=== PATIENT | male | born 1945 | race Caucasian/White ===

== ENCOUNTER → 2019-11-04 09:17 | Outpatient (BNVA) | payer MEDICARE, SELFPAY | PROVIDERS: Family Provider Family Medicine; PCP Family Medicine; Visit Provider Emergency Medicine | DX: R52 Pain, unspecified (principal); R05 Cough; R00.1 Bradycardia, unspecified; N28.9 Disorder of kidney and ureter, unspecified; I50.9 Heart failure, unspecified; J01.00 Acute maxillary sinusitis, unspecified | CPT/HCPCS: 87804 ==

== ENCOUNTER → 2021-01-28 09:21 | Outpatient (BNVA) | payer OTHER, MEDICARE, SELFPAY | PROVIDERS: Family Provider Family Medicine; PCP Family Medicine; Visit Provider Emergency Medicine | DX: J02.9 Acute pharyngitis, unspecified (principal); J06.9 Acute upper respiratory infection, unspecified | CPT/HCPCS: 87071; 87880 ==

== ENCOUNTER 2021-09-26 14:53 | Inpatient (IN) | payer OTHER, MEDICARE, SELFPAY ==
[2021-09-26] VITALS (10 sets, daily range): BP systolic 151–205; BP diastolic 50–84; PULSE 35–50; RESP 15–23; TEMP 36.6; O2SAT 95–99; BMI 34.7
--- NOTE | 2021-09-26 15:02 | ECG_ITS ---
[facility] Test Date: 2021-09-26 Pat Name: Virgilio Means Department: Room: Gender: Male Slimer: : 1945 Requested By: Madi Colón Order Number: [id number] Apryl MD: David Hanna M.D. Measurements Intervals [place] Rate: 54 P: [place]: QRS: 75 QRSD: 169 T: -22 QT: 483 QTc: 459 Interpretive Statements UNCERTAIN IRREGULAR RHYTHM LEFT BUNDLE BRANCH BLOCK [120+ ms QRS DURATION, 80+ ms Q/S IN V1/V2, 85+ ms R IN I/aVL/V5/V6] Compared to ECG 07/05/2019 11:59:54 Left bundle-branch block now present Sinus bradycardia no longer present T-wave abnormality no longer present Electronically Signed On 09-27-2021 17:42:32 REVERSER by David Hanna M.D. [id number]
--- NOTE | 2021-09-26 16:59 | ED_ITS ---
Documented by User: Madi Islas DO 10/04/21 11:14 HPI - Chest Pain General: Chief Complaint: ER Hold Stated Complaint: CP Time Seen by Provider: 09/26/21 16:33 History of Present Illness: HPI narrative: 76-year-old male presents emergency room with complaint of chest discomfort and tightness. Patient has a history of coronary artery disease. He does take metoprolol is not had any recent changes in medication. The nurse wrote he was reporting pain 10 out of 10 however when I came to see the patient he was denying any chest pain. MD complaint: chest pain and chest discomfort Pertinent past history: coronary artery disease Onset (ago): hour(s) Timing of current episode: episodic Prior episodes: Yes Onset: during rest Pain location: left chest Pain radiation: none Severity: moderate Quality: aching and heaviness Relieving factors: nothing Exacerbating factors: nothing Associated symptoms: Deny abdominal pain, diaphoresis, dyspnea, fever(s), leg edema, nausea, palpitations, sense of impending doom, syncope or vomiting Treatment prior to arrival: none Review of Systems Const: Denies: fever(s) or diaphoresis ENMT: Denies: throat pain, ear or mastoid pain, nasal discharge or nasal congestion Card: Denies: palpitations or syncope Resp: Denies: dyspnea GI: Denies: abdominal pain, nausea or vomiting : Denies: flank pain, dysuria, urinary frequency or urinary urgency Skin/Breast: Denies: rash or pruritus [facility] ED PFSH: Medical History Acute myocardial infarction, unspecified Bradycardia Bradycardia CAD (coronary artery disease) Cardiomegaly Chest pain CHF (congestive heart failure) Chronic sinus bradycardia CKD (chronic kidney disease) stage 3, GFR 30-59 ml/min COPD (chronic obstructive pulmonary disease) Gout, chronic Hypertension Impaired renal function PTSD (post-traumatic stress disorder) Thrombocytopenia Social History Smoking and tobacco status: never smoked Alcohol intake: never History of recent travel: Yes Details: Traveled to [place] for Dr andrews. Returned 01/26/21 Out of state: Yes Out of country: No Physical Exam Const: COMMON NORMALS: no acute distress and alert GENERAL APPEARANCE: cooperative and comfortable ORIENTATION/CONSCIOUSNESS: Yes awake, Yes oriented to person, Yes oriented to place and Yes oriented to time HENMT: COMMON NORMALS: normocephalic, atraumatic, external ears normal, EAC's normal, TM's normal bilaterally and Normal nasal mucous membranes and turbinates present HEAD & SCALP: normocephalic and atraumatic NOSE: Normal nasal mucous membranes and turbinates present EXTERNAL EAR: Yes external ears normal EXTERNAL AUDITORY CANAL: EAC's normal TYMPANIC MEMBRANE: TM's normal bilaterally Neck/C-Spine: COMMON NORMALS: no JVD Resp: COMMON NORMALS: normal respiratory effort, No retractions, No use of accessory muscles and clear to auscultation bilaterally AUSCULTATION: clear to auscultation bilaterally Cardio: COMMON NORMALS: no JVD, regular rhythm and No murmurs present (Cardio) RATE: bradycardic RHYTHM: regular rhythm GI: COMMON NORMALS: Soft to palpation and No hepatosplenomegaly present AUSCULTATION: Yes normoactive bowel sounds PALPATION: Yes Soft to palpation, No Tenderness to palpation present (GI), No Guarding due to palpation present (GI) and Yes No hepatosplenomegaly present Extremity: COMMON NORMALS: normal to inspection, capillary refill normal, no clubbing, cyanosis or edema, no calf tenderness and no pedal edema Neuro: SENSORIUM/ORIENTATION: Yes alert, Yes oriented to person, Yes oriented to place and Yes oriented to time Skin: COMMON NORMALS: no rashes or lesions noted GENERAL SKIN EXAM: no rashes or lesions noted Course Vital Signs: Vital signs: Vital Signs Temperature 97.8 F 09/30/21 21:54 Pulse Rate 90 09/30/21 21:54 Respiratory Rate 25 H 09/30/21 21:54 Blood Pressure 165/89 09/30/21 21:54 Pulse Oximetry 99 09/30/21 15:41 MDM - Chest Pain MDM Narrative Medical decision making narrative: Labs imaging and EKG reviewed nothing acute he does have some mildCongestive heart failure. There are some labs pending he is having a chronic sinus bradycardia which is quite significant. Care turned over to Dr. Cespedes at change shift see his note final diagnosis and disposition. Medical Records Attestation: I reviewed the patient's medical records. Lab Data Attestation: I reviewed the patient's lab results. Result diagrams: 09/30/21 04:50 09/30/21 04:50 Labs: Lab Results 09/26/21 09/26/21 09/26/21 16:39 16:39 16:39 WBC 4.2 10^3/uL 10^3/uL (4.0-10.0) RBC 3.39 10^6/uL L 10^6/uL (4.1-5.3) Hgb 10.2 g/dL L g/dL (11.7-16.6) Hct 29.1 % L % (42.0-52.0) MCV 85.8 fl fl (80-94) MCH 30.1 pg pg (28.0-34.0) MCHC 35.1 g/dL g/dL (30.0-36.0) RDW 12.5 % % (12.1-15.1) Plt Count 159 10^3/cmm 10^3/cmm (130-400) MPV 9.7 fL fL (7.4-10.4) Neut % (Auto) 65.9 % % Lymph % (Auto) 20.3 % % [place] % (Auto) 9.3 % % Eos % (Auto) 4.1 % % Baso % (Auto) 0.2 % % Neut # (Auto) 2.75 10^3/uL 10^3/uL (1.8-7.7) Lymph # (Auto) 0.9 10^3/uL 10^3/uL (0.8-4.8) [place] # (Auto) 0.4 10^3/uL 10^3/uL (0.2-0.9) Eos # (Auto) 0.2 10^3/uL 10^3/uL (0.0-0.8) Baso # (Auto) 0.0 10^3/uL 10^3/uL (0.0-0.1) Nucleated RBC % (auto) 0 % % Nucleated RBCs # 0.0 /100WBC /100WBC Sodium 134 mmol/L L mmol/L (136-145) Potassium 4.8 mmol/L mmol/L (3.5-5.1) Chloride 102 mmol/L mmol/L (98-107) Carbon Dioxide 20 mmol/L L mmol/L (22-29) Anion Gap 16.8 (5-19) BUN 14 mg/dL mg/dL (8-23) Creatinine 1.5 mg/dL H mg/dL (0.7-1.2) GFR Calculation Not Reportable Glucose 102 mg/dL mg/dL (65-115) Calculated Osmolality 279 mOsm/kg L mOsm/kg (285-295) Calcium 8.2 mg/dL L mg/dL (8.5-10.5) Total Bilirubin 0.3 mg/dL mg/dL (0.15-1.2) AST 59 U/L H U/L (0-40) ALT 40 U/L U/L (0-41) Alkaline Phosphatase 63 IU/L IU/L (40-130) Creatine Kinase 74 U/L U/L (39-308) Troponin T Baseline 33 ng/L H ng/L (0-15) Troponin T 120 Minute Delta Troponin T NT-Pro-B Natriuret Pep 9279 pg/mL H pg/mL (0-125) Total Protein 6.3 g/dL L g/dL (6.6-8.7) Albumin 3.9 g/dL g/dL (3.5-5.2) Globulin 2.4 g/dL g/dL (1.3-4.6) 09/26/21 19:05 WBC RBC Hgb Hct MCV MCH MCHC RDW Plt Count MPV Neut % (Auto) Lymph % (Auto) [place] % (Auto) Eos % (Auto) Baso % (Auto) Neut # (Auto) Lymph # (Auto) [place] # (Auto) Eos # (Auto) Baso # (Auto) Nucleated RBC % (auto) Nucleated RBCs # Sodium Potassium Chloride Carbon Dioxide Anion Gap BUN Creatinine GFR Calculation Glucose Calculated Osmolality Calcium Total Bilirubin AST ALT Alkaline Phosphatase Creatine Kinase Troponin T Baseline Troponin T 120 Minute 34.03 ng/L H ng/L (0-15) Delta Troponin T 1.03 ABS# ABS# (0-10) NT-Pro-B Natriuret Pep Total Protein Albumin Globulin Discharge Plan Discharge Patient Disposition: Admitted As Inpatient Admit Provider: Evan Pena Clinical Impression: Chest pain, Bradycardia Condition: Stable Discharge Diet: Cardiac Discharge Activity: Increase activity as tolerated Coding Level of Care Code ED Junior Programmer Analyst for g Fwd Exam Detailed Documented by User: Whit Cespedes MD 09/26/21 19:57 HPI - Chest Pain General: Chief Complaint: ER Hold Stated Complaint: CP Time Seen by Provider: 09/26/21 16:33 PFSH ED PFSH: Medical History Acute myocardial infarction, unspecified Bradycardia Bradycardia CAD (coronary artery disease) Cardiomegaly Chest pain CHF (congestive heart failure) Chronic sinus bradycardia CKD (chronic kidney disease) stage 3, GFR 30-59 ml/min COPD (chronic obstructive pulmonary disease) Gout, chronic Hypertension Impaired renal function PTSD (post-traumatic stress disorder) Thrombocytopenia Social History Smoking and tobacco status: never smoked Alcohol intake: never History of recent travel: Yes Details: Traveled to [place] for Dr andrews. Returned 01/26/21 Out of state: Yes Out of country: No Course Vital Signs: Vital signs: Vital Signs Temperature 97.8 F 09/30/21 21:54 Pulse Rate 90 09/30/21 21:54 Respiratory Rate 25 H 09/30/21 21:54 Blood Pressure 165/89 09/30/21 21:54 Pulse Oximetry 99 09/30/21 15:41 MDM - Chest Pain MDM Narrative Medical decision making narrative: Patient presents here with chest pain along with bradycardia bradycardia been asymptomatic he has not been hypotensive heart rate does dip into the 30s this could be due to his medication of metoprolol he has not followed up with cardiology in months spoke to hospitalist will admit for observation for his pain along with his bradycardia. Lab Data Result diagrams: 09/30/21 04:50 09/30/21 04:50 Labs: Lab Results 09/26/21 09/26/21 09/26/21 16:39 16:39 16:39 WBC 4.2 10^3/uL 10^3/uL (4.0-10.0) RBC 3.39 10^6/uL L 10^6/uL (4.1-5.3) Hgb 10.2 g/dL L g/dL (11.7-16.6) Hct 29.1 % L % (42.0-52.0) MCV 85.8 fl fl (80-94) MCH 30.1 pg pg (28.0-34.0) MCHC 35.1 g/dL g/dL (30.0-36.0) RDW 12.5 % % (12.1-15.1) Plt Count 159 10^3/cmm 10^3/cmm (130-400) MPV 9.7 fL fL (7.4-10.4) Neut % (Auto) 65.9 % % Lymph % (Auto) 20.3 % % [place] % (Auto) 9.3 % % Eos % (Auto) 4.1 % % Baso % (Auto) 0.2 % % Neut # (Auto) 2.75 10^3/uL 10^3/uL (1.8-7.7) Lymph # (Auto) 0.9 10^3/uL 10^3/uL (0.8-4.8) [place] # (Auto) 0.4 10^3/uL 10^3/uL (0.2-0.9) Eos # (Auto) 0.2 10^3/uL 10^3/uL (0.0-0.8) Baso # (Auto) 0.0 10^3/uL 10^3/uL (0.0-0.1) Nucleated RBC % (auto) 0 % % Nucleated RBCs # 0.0 /100WBC /100WBC Sodium 134 mmol/L L mmol/L (136-145) Potassium 4.8 mmol/L mmol/L (3.5-5.1) Chloride 102 mmol/L mmol/L (98-107) Carbon Dioxide 20 mmol/L L mmol/L (22-29) Anion Gap 16.8 (5-19) BUN 14 mg/dL mg/dL (8-23) Creatinine 1.5 mg/dL H mg/dL (0.7-1.2) GFR Calculation Not Reportable Glucose 102 mg/dL mg/dL (65-115) Calculated Osmolality 279 mOsm/kg L mOsm/kg (285-295) Calcium 8.2 mg/dL L mg/dL (8.5-10.5) Total Bilirubin 0.3 mg/dL mg/dL (0.15-1.2) AST 59 U/L H U/L (0-40) ALT 40 U/L U/L (0-41) Alkaline Phosphatase 63 IU/L IU/L (40-130) Creatine Kinase 74 U/L U/L (39-308) Troponin T Baseline 33 ng/L H ng/L (0-15) Troponin T 120 Minute Delta Troponin T NT-Pro-B Natriuret Pep 9279 pg/mL H pg/mL (0-125) Total Protein 6.3 g/dL L g/dL (6.6-8.7) Albumin 3.9 g/dL g/dL (3.5-5.2) Globulin 2.4 g/dL g/dL (1.3-4.6) 09/26/21 19:05 WBC RBC Hgb Hct MCV MCH MCHC RDW Plt Count MPV Neut % (Auto) Lymph % (Auto) [place] % (Auto) Eos % (Auto) Baso % (Auto) Neut # (Auto) Lymph # (Auto) [place] # (Auto) Eos # (Auto) Baso # (Auto) Nucleated RBC % (auto) Nucleated RBCs # Sodium Potassium Chloride Carbon Dioxide Anion Gap BUN Creatinine GFR Calculation Glucose Calculated Osmolality Calcium Total Bilirubin AST ALT Alkaline Phosphatase Creatine Kinase Troponin T Baseline Troponin T 120 Minute 34.03 ng/L H ng/L (0-15) Delta Troponin T 1.03 ABS# ABS# (0-10) NT-Pro-B Natriuret Pep Total Protein Albumin Globulin EKG Data^ EKG 1: Attestation: I personally reviewed and interpreted this EKG as follows: EKG interpretation date: 09/26/21 EKG interpretation time: 18:13 Interpretation: ash hr [address] or t wave abnormalities qrs 172 qtc 471 Discharge Plan Discharge Patient Disposition: Admitted As Inpatient Admit Provider: Evan Pena Clinical Impression: Chest pain, Bradycardia Condition: Stable Discharge Diet: Cardiac Discharge Activity: Increase activity as tolerated Coding Level of Care Code ED Junior Programmer Analyst for g Fwd Exam Detailed
--- NOTE | 2021-09-26 17:10 | XRR_ITS ---
PROCEDURE INFORMATION: Exam: XR Chest Exam date and time: 09/26/2021 5:10 PM Age: 76 years old Clinical indication: Chest wall pain; Prior surgery; Surgery date: 6+ months; Surgery type: Stints; Additional info: Chest pain TECHNIQUE: Imaging protocol: XR of the chest. Views: 1 view. COMPARISON: CR Chest 1 [place] [id number] 07/05/2019 12:46 PM FINDINGS: Lungs: Unremarkable. No consolidation. Pleural spaces: Unremarkable. No pleural effusion. No pneumothorax. Heart/Mediastinum: Stable mild cardiomegaly. Bones/joints: Sternotomy wires noted. The superior most sternotomy wires are fractured, unchanged. Visualized osseous structures are intact. XR/XR chest 1V portable [id number] IMPRESSION: Stable exam, no acute findings.
[2021-09-26 17:27] LABS: Basophils % 0.2 %; Eosinophils # 0.2 10^3/uL (0.0-0.8); Eosinophils % 4.1 %; Hematocrit 29.1 % (42.0-52.0); Hemoglobin 10.2 g/dL (11.7-16.6); Lymphocytes # 0.9 10^3/uL (0.8-4.8); Lymphocytes % 20.3 %; Mean Corpuscular HGB Conc 35.1 g/dL (30.0-36.0); Mean Corpuscular Hemoglobin 30.1 pg (28.0-34.0); Mean Corpuscular Volume 85.8 fl (80-94); Mean Platelet Volume 9.7 fL (7.4-10.4); Monocytes # 0.4 10^3/uL (0.2-0.9); Monocytes % 9.3 %; Neutrophils # 2.75 10^3/uL (1.8-7.7); Neutrophils % 65.9 %; Nucleated Red Blood Cells % 0 %; Platelet Count 159 10^3/cmm (130-400); Red Blood Count 3.39 10^6/uL (4.1-5.3); Red Cell Distribution Width 12.5 % (12.1-15.1); White Blood Count 4.2 10^3/uL (4.0-10.0)
[2021-09-26] MEDS: aspirin 81 mg Chew Tablet 324 MG PO (17:29)
--- NOTE | 2021-09-26 17:51 | PC.PHAR ---
pts verified the pts medications-pts states the pt was taking metformin but states he hasnt taken for a year or so-waiting for [facility] to [facility] list
[2021-09-26 18:14] LABS: Troponin(5th) Baseline 33 ng/L (0-15)
[2021-09-26 18:18] LABS: Alanine Aminotransferase 40 U/L (0-41); Albumin Level 3.9 g/dL (3.5-5.2); Alkaline Phosphatase 63 IU/L (40-130); Aspartate Amino Transferase 59 U/L (0-40); Blood Urea Nitrogen 14 mg/dL (8-23); Calcium 8.2 mg/dL (8.5-10.5); Carbon Dioxide 20 mmol/L (22-29); Chloride 102 mmol/L (98-107); Creatine Phosphokinase 74 U/L (39-308); Globulin 2.4 g/dL (1.3-4.6); Glucose 102 mg/dL (65-115); NT Pro B Type Natriuretic Pept 9279 pg/mL (0-125); Osmolality Calculated 279 mOsm/kg (285-295); Sodium 134 mmol/L (136-145); Total Bilirubin 0.3 mg/dL (0.15-1.2); Total Protein 6.3 g/dL (6.6-8.7)
[2021-09-26 18:21] LABS: Anion Gap 16.8 (5-19); Potassium 4.8 mmol/L (3.5-5.1)
--- NOTE | 2021-09-26 19:10 | ECG_ITS ---
[facility] Test Date: 2021-09-26 Pat Name: Virgilio Means Department: Room: Gender: Male Nut Threader: : 1945 Requested By: Madi Colón Order Number: [id number] Apryl MD: Krista Walker M.D. Measurements Intervals [place] Rate: 49 P: [place]: QRS: 5 QRSD: 172 T: 146 QT: 500 QTc: 454 Interpretive Statements Sinus rhythm with long first-degree AV block LEFT BUNDLE BRANCH BLOCK [120+ ms QRS DURATION, 80+ ms Q/S IN V1/V2, 85+ ms R IN I/aVL/V5/V6] Compared to ECG 09/26/2021 15:14:25 No significant changes Electronically Signed On 09-29-2021 9:36:33 WATER MAINTENANCE SUPERVISOR by Krista Walker M.D. [id number]
[2021-09-26 19:33] LABS: Troponin 5 2HR 34.03 ng/L (0-15); Troponin 5 2HR Delta 1.03 ABS# (0-10)
--- NOTE | 2021-09-26 20:47 | PM.HP ---
Providers/Chief Complaint Primary Care Provider: Lara Jenkins MD Chief Complaint: CP History of Present Illness Virgilio Means is a 76 year old male with past medical history hypertension diabetes, CAD S/P PCI , HFrEF with EF of 45%, gout, chronic sinus bradycardia, came in with chief complaint of acute onset of dizziness, as well as substernal chest pain while he was walking this morning to collect his mail. chest pain was moderate in intensity, nonradiating, transient, it resolved with rest.Patient has known history of chronic sinus bradycardia, according to him he usually stays in upper 40s. When I examined the patient he denied any chest pain shortness of breath dizziness, fever cough headache, nausea vomiting. His heart rate in the ER had dropped lowest to 35 Upon arrival in the ER worked up for above-mentioned complaint. Pertinent imaging studies: X-ray chest: No acute findings EKG: Junctional bradycardia Pertinent labs: WBC 4.2 H&H:10.2/29, PLT : 159 , serum sodium 134 serum potassium 4.8, BUN / serum creatinine 14/ 1.5 , Troponin trend without significant delta, proBNP 9279 Review of Systems Const: Denies: fever(s), chills, body aches, change in appetite or diaphoresis Card: Denies: palpitations, edema, swelling of feet/ankles, dyspnea on exertion, orthopnea or leg pain with exertion Resp: Denies: dyspnea, productive cough, wheezing or pain on inspiration GI: Denies: abdominal pain, nausea, vomiting, diarrhea or constipation : Denies: flank pain or difficulty urinating Musc: Denies: back pain, extremity pain or extremity swelling Neuro: Denies: headache(s), difficulty walking or confusion Medications/Allergies Home Medications Medication Instructions Recorded Confirmed Last Taken Type cetirizine 10 mg capsule 10 mg PO QAM 11/01/19 09/26/21 09/26/21 History clopidogrel 75 mg tablet 75 mg PO QAM 11/01/19 09/26/21 09/26/21 History furosemide 20 mg tablet 20 mg PO DAILY PRN 11/01/19 09/26/21 Unknown History metoprolol tartrate 100 mg tablet 100 mg PO BID 11/01/19 09/26/21 09/26/21 History prazosin 1 mg capsule 1 mg PO BID 11/01/19 09/26/21 09/26/21 History rosuvastatin 20 mg tablet 10 mg PO BEDTIME 11/01/19 09/26/21 09/25/21 History valsartan 80 mg tablet 80 mg PO QAM 11/01/19 09/26/21 09/26/21 History albuterol sulfate [ProAir HFA] 2 puff INHALATION QID PRN 09/26/21 09/26/21 Unknown History aspirin [Aspir-81] 81 mg PO BEDTIME 09/26/21 09/26/21 09/25/21 History diphenhydramine HCl [Benadryl] 50 mg PO BEDTIME 09/26/21 09/26/21 09/25/21 History febuxostat [Uloric] 80 mg PO QAM 09/26/21 09/26/21 09/26/21 History morphine 15 mg PO Q12H PRN 09/26/21 09/26/21 Unknown History omega-3 fatty acids [Fish Oil] 1,000 mg PO BID 09/26/21 09/26/21 09/26/21 History trazodone 50 mg PO BEDTIME 09/26/21 09/26/21 09/25/21 History Allergies Allergy/AdvReac Type Severity Reaction Status Date / Time SHIREEN Inhibitors Allergy unknown Verified 02/01/21 09:03 azithromycin Allergy unknown Verified 02/01/21 09:03 daptomycin Allergy unknown Verified 02/01/21 09:03 enalapril Allergy unknown Verified 02/01/21 09:03 vancomycin Allergy unknown Verified 02/01/21 09:03 PFSH Acute PFSH: Medical History (Updated 09/26/21 @ 20:52 by Evan Pena MD) CHF (congestive heart failure) Chronic sinus bradycardia Impaired renal function Social History Smoking and tobacco status: never smoked Alcohol intake: never History of recent travel: Yes Details: Traveled to [place] for Dr andrews. Returned 01/26/21 Out of state: Yes Out of country: No Vitals/I&O/Wt Last Vital Signs Temp 97.9 F 09/26/21 15:06 Pulse 35 L 09/26/21 19:15 Resp 18 09/26/21 19:15 BP 205/83 09/26/21 19:15 Pulse Ox 99 09/26/21 19:15 Weight last 48 hrs Weight 106.594 kg Physical Exam Const: COMMON NORMALS: patient oriented x3 HENMT: COMMON NORMALS: normocephalic and atraumatic HEAD & SCALP: normocephalic and atraumatic Resp: COMMON NORMALS: clear to auscultation bilaterally EFFORT & INSPECTION: Yes symmetric chest movement AUSCULTATION: clear to auscultation bilaterally Cardio: COMMON NORMALS: regular rate, regular rhythm, S1 normal heart sound present, S2 normal heart sound present, No gallops present (Cardio), No murmurs present (Cardio), No rub (Cardio) and Peripheral pulses 2+ throughout RATE: regular rate RHYTHM: regular rhythm HEART SOUNDS: S1 normal heart sound present and S2 normal heart sound present PERIPHERAL PULSES: Peripheral pulses 2+ throughout GI: COMMON NORMALS: Normal to inspection, nondistended, normoactive bowel sounds present, Soft to palpation, non-tender, No hepatosplenomegaly present and no masses AUSCULTATION: Yes normoactive bowel sounds PALPATION: Yes Soft to palpation and Yes No hepatosplenomegaly present RECTAL EXAM: Yes deferred Extremity: COMMON NORMALS: no clubbing, cyanosis or edema and no pedal edema Neuro: COMMON NORMALS: patient oriented x3 Data : 09/26/21 16:39 09/26/21 16:39 A&P Assessment and plan (1) Bradycardia: Status: Acute (2) Chest pain: Status: Acute (3) CHF (congestive heart failure): Status: Acute Qualifiers: Heart failure chronicity: chronic Heart failure type: unspecified Qualified Code(s): I50.9 - Heart failure, unspecified (4) Hypertension: Status: Acute (5) CKD (chronic kidney disease) stage 3, GFR 30-59 ml/min: Status: Acute Additional A&P Information 76 year old male with past medical history hypertension diabetes, CAD S/P PCI {LCx} , CABG , HFrEF with EF of 45%, gout, chronic sinus bradycardia, came in with chief complaint of acute onset of dizziness, as well as substernal chest pain while he was walking this morning to collect his mail. chest pain was moderate in intensity, nonradiating, transient, it resolved with rest.Patient has known history of chronic sinus bradycardia, according to him he usually stays in upper 40s. #Symptomatic junctional bradycardia : Likely secondary to medication side effect, patient is on metoprolol 100 mg p.o. twice daily at home.Currently patient denies any symptoms. 2D echo Continue telemetry monitoring We will give 500 cc normal saline one-time. Dopamine drip if needed Continue to hold metoprolol Serial professor of biostatistics electrolytes Telemetry monitoring Cardiology consult in a.m. #Chest pain: Likely secondary to symptomatic bradycardia, patient may need ischemia work-up in future. Plan as above #Hypertension: Continue valsartan added hydralazine 50 mg p.o. 3 times daily. As the blood pressure is currently uncontrolled. #HFrEF : Currently compensated. Intake output charting Daily weight K>4, Mg>2 #Diabetes: Continue sliding scale insulin Currently n.p.o. Monitor fingerstick glucose Will start on carbohydrate consistent diet #Gout: Continue Febuxostat #History of coronary artery disease.2019 Angiography reveals no bypass grafts located. Mild left anterior descending disease without lesions. Discrete 99% stenosis of the mid circumflex which underwent angioplasty and stenting.Chronic occlusion of the right coronary artery with collateral flow from the LAD and circumflex mild left ventricular dysfunction, ejection fraction 45%. #CKD stage III: Currently serum creatinine at baseline Monitor BMP Avoid nephrotoxic Intake output charting #DVT prophylaxis: On Lovenox #CODE STATUS: Full code Attestations Medical Necessity Statement*: Patient is to be in hospital for management of symptomatic bradycardia. Anticipated length of stay greater than 2 midnights. Time Spent in Patient Care: Greater than 35 minutes (>than 50% of time spent in counselling and/or direct pt care on unit). Coding Level of Care Code Acute Motor Vehicle Parts Interpreter for [facility] Fwd Exam Detailed Diagnoses Bradycardia R00.1 Chest pain R07.9 CHF (congestive heart failure) I50.9 Heart failure chronicity: chronic Heart failure type: unspecified Hypertension I10 CKD (chronic kidney disease) stage 3, GFR 30-59 ml/min N18.30
[2021-09-26] MEDS: enoxaparin 30 mg/0.3 mL Syringe SUBCUT (21:19)
[2021-09-26] MEDS: sodium chloride 0.9% 1,000 ML 75 ML IV (21:19)
[2021-09-26 22:43] LABS: Troponin 5 6HR 34.74 ng/L (0-15); Troponin 5 6HR Delta 1.74 ng/L (0-12)
--- NOTE | 2021-09-26 23:10 | ECG_ITS ---
[facility] Test Date: 2021-09-27 Pat Name: Virgilio Means Department: Room: EDIP Gender: Male Group Reservations Coordinator: : 1945 Requested By: Madi Colón Order Number: [id number] Apryl MD: Krista Walker M.D. Measurements Intervals [place] Rate: 41 P: [place]: QRS: -23 QRSD: 121 T: 125 QT: 465 QTc: 387 Interpretive Statements Sinus rhythm with long first-degree AV block LEFT BUNDLE BRANCH BLOCK Compared to ECG 09/26/2021 18:13:53 No significant change Electronically Signed On 09-29-2021 9:34:16 MANAGER TRADE by Krista Walker M.D. [email or web address], [email or web address] [email or web address]/[id number]
[2021-09-26] MEDS: hyDRALAzine 25 mg Tablet 50 MG PO (23:37)
[2021-09-26] MEDS: aspirin 81 mg EC Tablet PO (23:37)
[2021-09-26] MEDS: atorvastatin 40 mg Tablet PO (23:38)
--- NOTE | 2021-09-26 23:43 | PC.NURSE ---
patient sleeping comfortably in bed upon entry. patient easily aroused via verbal stimuli. patient given night miedications. patient denies problems/concerns . patinet on youth nutritional monitor. side rails raised x 2 and bed in low, locked position. call light within rech.
[2021-09-27] VITALS (23 sets, daily range): BP systolic 133–198; BP diastolic 56–94; PULSE 40–61; RESP 13–24; TEMP 36.6–36.7; O2SAT 94–99
--- NOTE | 2021-09-27 03:44 | PC.NURSE ---
patient helped to bedside commode for bowel movement. patient with no difficulties noted. patient placed back in bed and on desk monitor. Patient in no obvious distress. Side rails raised x2 and bed in low, locked position. call light within reach. patient denies further needs/complaints at this time.
--- NOTE | 2021-09-27 05:25 | PC.NURSE ---
patient helped to bedside commode with no difficulty. patients EKG performed and shown to DR. capps. patients morning labs drawn with new IV stick and sent to lab. patients bilateral AC iv's removed as leaking from cathlon noted. IV's removed intact with no complications. Patient on security monitor at this time.
[2021-09-27 05:27] LABS: Basophils % 0.4 %; Eosinophils # 0.2 10^3/uL (0.0-0.8); Hematocrit 30.8 % (42.0-52.0); Hemoglobin 10.2 g/dL (11.7-16.6); Lymphocytes # 1.1 10^3/uL (0.8-4.8); Lymphocytes % 22.2 %; Mean Corpuscular HGB Conc 33.1 g/dL (30.0-36.0); Mean Corpuscular Volume 87.5 fl (80-94); Mean Platelet Volume 8.9 fL (7.4-10.4); Monocytes # 0.4 10^3/uL (0.2-0.9); Monocytes % 7.9 %; Neutrophils % 65.3 %; Nucleated Red Blood Cells % 0 %; Platelet Count 155 10^3/cmm (130-400); Red Blood Count 3.52 10^6/uL (4.1-5.3); Red Cell Distribution Width 12.6 % (12.1-15.1); White Blood Count 5.1 10^3/uL (4.0-10.0)
[2021-09-27] MEDS: losartan 50 mg Tablet 25 MG PO (05:47)
[2021-09-27 05:54] LABS: Anion Gap 16.5 (5-19); Blood Urea Nitrogen 13 mg/dL (8-23); Calcium 8.5 mg/dL (8.5-10.5); Carbon Dioxide 21 mmol/L (22-29); Chloride 99 mmol/L (98-107); Glucose 99 mg/dL (65-115); Magnesium 1.6 mg/dL (1.7-2.3); Osmolality Calculated 274 mOsm/kg (285-295); Potassium 4.5 mmol/L (3.5-5.1); Sodium 132 mmol/L (136-145); Thyroid Stimulating Hormone 1.69 uIU/mL (0.27-4.20)
--- NOTE | 2021-09-27 06:52 | PC.NURSE ---
patient noted to have sustained bradycaria @ 24-31 bpm. Upon assessment patient AOx4 and on cafeteria monitor. patient states i just dont feel right and my rectum has starting hurting relaly bad. Dr. Pena notified and will come see patinet.
[2021-09-27] MEDS: hyDRALAzine 20 mg/mL INJ 1 mL 5 MG IVP (07:27)
[2021-09-27] MEDS: magnesium sulfate premix 2 GM/50 ML PIGGYBACK IV (07:28)
--- NOTE | 2021-09-27 07:31 | PM.CONSULT ---
Providers/Reason For Consult Consulting Physician/Specialty*: Dr. Walker, cardiology Reason for Consult*: Chest pain, dizziness and bradycardia Attending Physician: Bobbi Wilkinson MD Primary Care Provider: Lara Jenkins MD History of Present Illness History of Present Illness Virgilio Means is a 76 year old male with past medical history hypertension, diabetes, CAD with h/o remote CABG, status post PCI to mid circumflex in April 2019 (no bypass grafts or stump located on coronary angiogram, ostial LAD with 50% lesion occluded RCA at the origin with collaterals from left side). He also has history of congestive heart, gout, chronic sinus bradycardia. He came in with chief complaint of dizziness when he went to check his mail especially on bending over. He went back home and his drove him to the ER for further evaluation. He is a poor historian but after repeated questioning was able to tell me that he had some retrosternal chest pain on and off. Patient states that he does have it for some time and then it goes away. He does not check his blood pressure at home. He has not seen his primary care physician or Dr. Paris since 2019. On arrival to the ER he was found to have sinus rhythm with long first-degree AV block. Left bundle branch block. Intermittent high-grade AV block and 2: 1 AV block and junctional beats noted on telemetry. Patient states he was taking metoprolol tartrate 100 mg twice a day at home. His heart rate overnight intermittently dropped down to 30s. At the time of examination. Patient's heart rate is in 50s. He denies having any recurrent dizzy spells or chest discomfort since arrival to the ER. Blood pressure running high. I have been asked to assist in evaluating further management. Review of Systems Const: Denies: fever(s), chills, body aches, change in appetite or diaphoresis ENMT: Denies: epistaxis Card: Denies: palpitations, edema, swelling of feet/ankles, dyspnea on exertion, orthopnea or leg pain with exertion Resp: Denies: dyspnea, productive cough, wheezing or pain on inspiration GI: Denies: abdominal pain, nausea, vomiting, diarrhea, constipation or hematochezia : Denies: flank pain, difficulty urinating or hematuria Musc: Denies: back pain, extremity pain or extremity swelling Neuro: Denies: headache(s), difficulty walking or confusion Medications/Allergies Home Medications Medication Instructions Recorded Confirmed Last Taken Type cetirizine 10 mg capsule 10 mg PO QAM 11/01/19 09/26/21 09/26/21 History clopidogrel 75 mg tablet 75 mg PO QAM 11/01/19 09/26/21 09/26/21 History furosemide 20 mg tablet 20 mg PO DAILY PRN 11/01/19 09/26/21 Unknown History metoprolol tartrate 100 mg tablet 100 mg PO BID 11/01/19 09/26/21 09/26/21 History prazosin 1 mg capsule 1 mg PO BID 11/01/19 09/26/21 09/26/21 History rosuvastatin 20 mg tablet 10 mg PO BEDTIME 11/01/19 09/26/21 09/25/21 History valsartan 80 mg tablet 80 mg PO QAM 11/01/19 09/26/21 09/26/21 History albuterol sulfate [ProAir HFA] 2 puff INHALATION QID PRN 09/26/21 09/26/21 Unknown History aspirin [Aspir-81] 81 mg PO BEDTIME 09/26/21 09/26/21 09/25/21 History diphenhydramine HCl [Benadryl] 50 mg PO BEDTIME 09/26/21 09/26/21 09/25/21 History febuxostat [Uloric] 80 mg PO QAM 09/26/21 09/26/21 09/26/21 History morphine 15 mg PO Q12H PRN 09/26/21 09/26/21 Unknown History omega-3 fatty acids [Fish Oil] 1,000 mg PO BID 09/26/21 09/26/21 09/26/21 History trazodone 50 mg PO BEDTIME 09/26/21 09/26/21 09/25/21 History Allergies Allergy/AdvReac Type Severity Reaction Status Date / Time SHIREEN Inhibitors Allergy unknown Verified 02/01/21 09:03 azithromycin Allergy unknown Verified 02/01/21 09:03 daptomycin Allergy unknown Verified 02/01/21 09:03 enalapril Allergy unknown Verified 02/01/21 09:03 vancomycin Allergy unknown Verified 02/01/21 09:03 Current Medications Generic Name Dose Route Start Last Admin Trade Name Freq PRN Reason Stop Dose Admin Aspirin 81 mg 09/26/21 22:25 09/26/21 23:37 Aspirin 81 Mg Ec Tablet PO 81 mg BEDTIME ANNMARIE Administration Atorvastatin Calcium 40 mg 09/26/21 22:25 09/26/21 23:38 Atorvastatin 40 Mg Tablet PO 40 mg BEDTIME ANNMARIE Administration Enoxaparin Sodium 30 mg 09/26/21 20:30 09/26/21 21:19 Enoxaparin 30 Mg/0.3 Ml Syringe SUBCUT 30 mg Q24H ANNMARIE Administration Hydralazine HCl 50 mg 09/26/21 22:25 09/26/21 23:37 Hydralazine 25 Mg Tablet PO 50 mg TID ANNMARIE Administration Magnesium Sulfate 2 gm in 50 mls @ 50 mls/hr 09/27/21 07:15 09/27/21 07:28 Magnesium Sulfate Premix IV 09/27/21 08:14 50 mls/hr ONCE ONE Administration Losartan Potassium 25 mg 09/27/21 06:00 09/27/21 05:47 Losartan 50 Mg Tablet PO 25 mg QAM ANNMARIE Administration Non-Formulary Medication 80 mg 09/27/21 06:00 09/27/21 05:47 Febuxostat [Uloric] PO Not Given QAM ANNMARIE PFSH Acute PFSH: Medical History Acute myocardial infarction, unspecified CAD (coronary artery disease) Cardiomegaly CHF (congestive heart failure) Chronic sinus bradycardia COPD (chronic obstructive pulmonary disease) Gout, chronic Impaired renal function PTSD (post-traumatic stress disorder) Thrombocytopenia Social History Smoking and tobacco status: never smoked Alcohol intake: never History of recent travel: Yes Details: Traveled to [place] for Dr andrews. Returned 01/26/21 Out of state: Yes Out of country: No Vitals/I&O/Wt Last Vital Signs Temp 97.9 F 09/27/21 05:48 Pulse 51 L 09/27/21 05:48 Resp 21 H 09/27/21 05:48 BP 195/60 09/27/21 05:48 Pulse Ox 97 09/27/21 05:48 Weight last 48 hrs Weight 235 lb Physical Exam Narrative: EXAM NARRATIVE: GENERAL: Averagely built and averagely nourished in no acute distress HEENT: Pupils equal round reactive to light. No pallor or icterus. NECK: No JVD. No carotid bruit. CARDIOVASCULAR SYSTEM: S1-S2 regular. No murmur or gallops. RESPIRATORY SYSTEM: Chest clear to auscultation. No wheezes rhonchi or rubs heard. No use of accessory muscles. ABDOMEN: Soft, nontender and nondistended. Normal bowel sounds present. EXTREMITIES: No cyanosis or edema. No signs of chronic venous insufficiency. 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 No focal neurological deficits. Data Labs: Other Labs: Baseline troponin Baseline troponin T 33 at 2 hours 34 and 6 hours 35. NT proBNP BNP 9279. TSH 1.69. Other Data: Attestation for Other Data: I personally reviewed and interpreted the following: Other data: Coronary angiogram 05 May 2019 Diagnostic Cath Status: Elective Diagnostic Findings Patient has multiple medical problems and also had bypass surgery many years ago. He states in the 70s. We have no old information and he does not remember anything. Presented to the hospital with typical anginal symptoms and new ST changes in the inferior and lateral leads. Stress testing suggests ischemia in the distribution of the right and the circumflex. It was recommended he undergo coronary angiography. The angiogram was performed from the right common femoral artery due to the previous history of bypass surgery. I looked for quite some time for any bypasses but was unable to find any bypass grafts or stumps. I also took a picture of the internal mammary artery to ensure it had not been used though I didn't think it would have been that many years ago. It was normal and had not been used as a bypass graft. The left main coronary artery is essentially normal. Circumflex is a relatively large vessel contains a 99% relatively discrete stenosis in the midportion. This is the culprit. The remainder the vessel is 3 marginal branches which are moderate to large in size. There is mild to moderate diffuse disease of these vessels but no significant lesions. LAD contains a 50% ostial stenosis. Beyond this there is mild to moderate diffuse disease and calcification but no significant lesions. Both vessels provide some collateral flow to the occluded right coronary artery. The right is occluded at its origin. The posterior descending and posterior left ventricular branch are easily seen via the collateral vessels. Mid Circumflex Coronary Artery: Severe 95% stenosis, 10.00 mm in length, moderately calcified, ulcerated, eccentric plaque, minimal proximal segment tortuosity, extremely angulated segment, CHARLA: 3 flow, high/c lesion. Coronary angiography shows right dominance. PCI Status: Elective PCI LVEF Assessed: Yes PCI Indication: New Onset Angina <= 2 months Interventional Findings The mid circumflex lesion was very tight and required predilatation with an angioplasty balloon. Subsequently it was stented without incident with a good angiographic result. Mid Circumflex Coronary Artery: 95% stenosis treated with AB TREK 2.50X12 RX BALLOON and MDT R VARINDER 3.0X12 MANDY. 0% residual stenosis, CHARLA: 3 flow. Successful intervention. Transthoracic echocardiogram 03 May 2019 CONCLUSIONS Normal left ventricular cavity size. Mild left ventricular hypertrophy. Normal left ventricular systolic function. No regional wall motion abnormalities. Grade II/IV diastolic dysfunction, moderately elevated filling pressures. Left ventricular ejection fraction is estimated at 60 %. Mildly increased right atrial size. Moderately increased left atrial size. Structurally normal mitral valve. Trace mitral valve regurgitation. There are no prior echocardiogram studies to compare A&P Assessment and plan (1) Bradycardia: Continue to hold AV jagjit blockers. -Monitor closely on telemetry. Status: Acute (2) Chest pain: Troponins negative, no recurrent episodes -Stress test has been ordered for tomorrow we will follow-up with that. 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 -We will titrate medications based on blood pressure. Status: Acute (5) CKD (chronic kidney disease) stage 3, GFR 30-59 ml/min: Status: Acute Consult Attestations Time Spent in Patient Care: 16 - 35 minutes (>than 50% of time spent in counselling and/or direct pt care on unit). Coding Level of Care Code Acute Prep Room Supervisor for [facility] Diagnoses Bradycardia R00.1 Chest pain R07.9 CHF (congestive heart failure) I50.9 Heart failure chronicity: chronic Heart failure type: unspecified Hypertension I10 CKD (chronic kidney disease) stage 3, GFR 30-59 ml/min N18.30
[2021-09-27 08:04] LABS: Glucose Point of Care 97 mg/dL (70-110)
[2021-09-27] MEDS: hyDRALAzine 25 mg Tablet 50 MG PO ×3 (08:05→20:15)
[2021-09-27] MEDS: amlodipine 5 mg Tablet PO (08:25)
--- NOTE | 2021-09-27 11:29 | P.PN_ITS ---
Subjective Subjective: Interval history: Patient is not a good historian however is stating that for last 2 weeks he has been experiencing intermittent chest pain especially with exertion, at baseline he is active for his age and for last 2 weeks after 30 to 35 feet he would get chest pain. When asked patient about his chest pain he said he feels it as discomfort in his chest would not say pressure or stabbing pain. No recent nausea or vomiting. When he went to grab his mail which is about 35 feet away from his front door he started experiencing chest pain He was evaluated in the ER heart rate in 55-58 range, blood pressure stable No active chest pain or shortness of breath Vitals/I&O/Wt Last Vital Signs Temp 97.9 F 09/27/21 05:48 Pulse 61 09/27/21 11:10 Resp 22 H 09/27/21 11:10 BP 153/62 09/27/21 11:10 Pulse Ox 99 09/27/21 11:10 09/26/21 09/27/21 09/27/21 22:59 06:59 14:59 Intake Total 1032.5 / 1032.5 Balance 1032.5 / 1032.5 Weight last 48 hrs Weight 106.594 kg Physical Exam Narrative: EXAM NARRATIVE: Patient was using bedside commode when I first entered On second visit he was laying supine in his bed No active chest pain or shortness of breath Heart rate 58 Blood pressure stable S1, S2 Abdomen soft distended with obesity Lower extremity trace edema Patient is awake and alert Nonfocal neuro exam Data : 09/27/21 05:20 09/27/21 05:20 A&P Assessment and plan (1) Bradycardia: Status: Acute (2) LBBB (left bundle branch block): Status: Acute (3) Hypertension: Status: Acute (4) Chest pain: Status: Acute Additional A&P Information New left bundle branch block Previous EKG showed bradycardia with first-degree AV block Overnight junctional rhythm noted by the admitting MD Patient heart rate is fluctuating between 55-58 this morning He is hypertensive No active chest pain My plan for cardiac stress test tomorrow morning AV blocking agent discontinued TSH normal Patient has history of chronic occluded right coronary artery, angiogram [place] [address] Paris at that time EF was read 45% however echo during same visit read EF of 60%, he had a stent placed in mid circumflex New left bundle branch block and chronically occluded right coronary artery, with symptomatic bradycardia, AV jagjit blocking agents are contraindicated We will keep him n.p.o. after midnight for stress test tomorrow, will touch base with Dr. 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
[2021-09-27] MEDS: heparin 5,000 unit/mL INJ 1 mL 5000 UNIT SUBCUT ×2 (13:09→20:14)
[2021-09-27] MEDS: isosorbide mononitrate ER 30 mg Tablet PO ×2 (13:09→20:15)
[2021-09-27 13:50] LABS: Glucose Point of Care 99 mg/dL (70-110)
[2021-09-27 15:50] LABS: Glucose Point of Care 188 mg/dL (70-110)
[2021-09-27] MEDS: insulin lispro 100 unit/1 mL SUBCUT (16:38)
[2021-09-27] MEDS: atorvastatin 40 mg Tablet PO (20:15)
[2021-09-27] MEDS: aspirin 81 mg EC Tablet PO (20:15)
[2021-09-27 20:17] LABS: Glucose Point of Care 97 mg/dL (70-110)
--- NOTE | 2021-09-27 20:22 | PC.NURSE ---
Shift Note Received pt from ER around 1125am. Denies any dizziness, lightheadedness or chest pain/discomfort. Pt HR is around upper 40s to upper 50s, junctional rhythm. Pt is hypertensive. Pt is alert, oriented, up ad camille to bathroom. Frequent safety and comfort rounds continue. Orders and/or nursing care completed as indicated. Patient monitored for response to intervention and treatment(s). Education provided includes imdur, hydralazine for BP control, stool sample, npo after mid, no caffeine due to stress test tomorrow. Patient and/or student services representative verbalizes understanding. Will continue to monitor.
[2021-09-27] MEDS: pneumococcal (23 valent) SDV 0.5 mL (21:48)
--- NOTE | 2021-09-27 22:25 | USCV_ITS ---
Virgilio Means Age: 76 Gender: M : 1945 Exam Date: 09/27/2021 06:52 Ordering Phys: Evan Pena MD Technologist: FAM Exam Location: [facility] [place] Indication: CHEST PAIN BP: 176 / 110 HR: 76 Rhythm: Sinus Technical Quality: Adequate MEASUREMENTS (Male / Female) Normal Values 2D ECHO LV Diastolic Diameter PLAX 5.5 cm 4.2 - 5.9 / 3.9 - 5.3 cm LV Systolic Diameter PLAX 4.1 cm IVS Diastolic Thickness 1.6 cm 0.6 - 1.0 / 0.6 - 0.9 cm IVS Systolic Thickness 1.9 cm LVPW Diastolic Thickness 1.1 cm 0.6 - 1.0 / 0.6 - 0.9 cm LVPW Systolic Thickness 2.0 cm LVOT Diameter 2.0 cm LV Ejection Fraction 2D Teich 48.7 % LV Ejection Fraction MOD 2C 44.8 % LV Ejection Fraction 2C AL 44.9 % LA Diameter 4.7 cm LA Width 4.3 cm LA Height 6.0 cm RA Width 4.7 cm RA Height 5.7 cm Aorta at Sinotubular Diameter 2.8 cm M-MODE Aortic Annulus Diameter 3.8 cm LA Ao Ratio MM 1.2 MV E Point Septal Separation 1.5 cm DOPPLER AV Peak Velocity 113.0 cm/s LVOT Peak Velocity 100.0 cm/s AV Area Cont Eq vti 3.2 cm squared AV Area Cont Eq pk 2.8 cm squared MV Area PHT 6.3 cm squared Mitral E to A Ratio 1.5 MV E' Velocity 59.5 cm/s Mitral E to MV E' Ratio 20.8 Mitral E to LV E' Lateral Ratio 22.0 Mitral E to LV E' Septal Ratio 19.7 TR Peak Velocity 270.0 cm/s TR Peak Gradient 29.2 mmHg TV Peak E Velocity 49.0 cm/s Right Atrial Pressure 3.0 mmHg Pulmonary Artery Systolic Pressu 32.2 mmHg PV Peak Velocity 111.0 cm/s RV Acceleration Time 0.1 s RV Ejection Time 0.3 s RV AcT/ET 0.2 FINDINGS Left Ventricle Normal left ventricular cavity size. Increased left ventricular wall thickness. Moderate left ventricular hypertrophy. Low normal left ventricular systolic function. Left ventricular ejection fraction is estimated at 50-55 %. There is hypokinesis of mid to apical inferior funez. Abnormal septal motion consistent with conduction abnormality. Grade II diastolic dysfunction, moderately elevated filling pressures. Right Ventricle Normal right ventricular size and systolic function. Right ventricular systolic pressure 32.2 mmHg. Right Atrium Normal right atrial size. Left Atrium Moderately increased left atrial size. Mitral Valve Mild mitral annular calcification. Moderately thickened mitral valve. No mitral valve stenosis. Mild mitral valve regurgitation. Aortic Valve Mildly thickened trileaflet aortic valve. No aortic valve stenosis. Mild aortic valve regurgitation. Tricuspid Valve Structurally normal tricuspid valve. Mild tricuspid valve regurgitation. Pulmonic Valve Structurally normal pulmonic valve. No pulmonary valve stenosis. Mild pulmonary valve regurgitation. Pericardium No pericardial effusion. Aorta Normal sized aortic root and proximal ascending aorta. CONCLUSIONS 1. This is a technically difficult study. 2. Normal left ventricular cavity size. Moderate concentric left ventricular hypertrophy. Low normal left ventricular systolic function. Left ventricular ejection fraction is estimated at 50- 55%. There is hypokinesis of mid to apical inferior funez. Grade II diastolic dysfunction, moderately elevated filling pressures. 3. Normal right ventricular size and systolic function. 4. Mild aortic valve regurgitation. 5. Mild tricuspid and mitral valve regurgitation. 6. When compared to previous study dated 05/03/2019, left ventricular systolic function seems to have decreased somewhat. Krista Walker MD (Electronically Signed) Final Date: 27 September 2021 09:11 S
[2021-09-28] VITALS (11 sets, daily range): BP systolic 142–162; BP diastolic 59–89; PULSE 52–93; RESP 17–24; TEMP 36.6–36.9; O2SAT 93–97
--- NOTE | 2021-09-28 03:07 | PC.NURSE ---
Patient educated that stool sample is needed. Patient states, I forgot and went in the toilet. Patient educated to use bedside commode, instead of toilet. Patient verbalized understanding.
[2021-09-28] MEDS: losartan 50 mg Tablet PO (03:22)
[2021-09-28] MEDS: heparin 5,000 unit/mL INJ 1 mL 5000 UNIT SUBCUT ×2 (03:22→20:04)
[2021-09-28 03:45] LABS: Basophils % 0.4 %; Eosinophils # 0.1 10^3/uL (0.0-0.8); Eosinophils % 2.8 %; Hematocrit 27.3 % (42.0-52.0); Hemoglobin 9.2 g/dL (11.7-16.6); Lymphocytes % 20.5 %; Mean Corpuscular HGB Conc 33.7 g/dL (30.0-36.0); Mean Corpuscular Hemoglobin 29.2 pg (28.0-34.0); Mean Corpuscular Volume 86.7 fl (80-94); Mean Platelet Volume 9.3 fL (7.4-10.4); Monocytes # 0.4 10^3/uL (0.2-0.9); Monocytes % 8.9 %; Nucleated Red Blood Cells % 0 %; Platelet Count 144 10^3/cmm (130-400); Red Blood Count 3.15 10^6/uL (4.1-5.3); White Blood Count 4.6 10^3/uL (4.0-10.0)
[2021-09-28 04:10] LABS: Anion Gap 15.2 (5-19); Blood Urea Nitrogen 10 mg/dL (8-23); Carbon Dioxide 20 mmol/L (22-29); Chloride 103 mmol/L (98-107); Glucose 91 mg/dL (65-115); Magnesium 1.7 mg/dL (1.7-2.3); Osmolality Calculated 277 mOsm/kg (285-295); Potassium 4.2 mmol/L (3.5-5.1); Sodium 134 mmol/L (136-145)
[2021-09-28 04:17] LABS: Chol HDL Ratio 3.88 mg/dL (1.0-5.00); Cholesterol 101 mg/dL (0-200); HDL Cholesterol 26 mg/dL (60-100); LDL Cholesterol Calculated 45 mg/dL (50-129); LDL HDL Ratio 1.73 RATIO (0.00-3.22); Triglycerides 148 mg/dL (0-150)
--- NOTE | 2021-09-28 05:05 | PC.NURSE ---
Dr. Walker notified that patient's heart rate drops to 20s to 30s when sleeping. When patient is awakened, heart rate comes up to 50s. Patient is asymptomatic and blood pressure 132/57. No new orders at this time.
[2021-09-28 06:41] LABS: Glucose Point of Care 104 mg/dL (70-110)
[2021-09-28] MEDS: hyDRALAzine 25 mg Tablet 50 MG PO ×2 (09:25→20:02)
[2021-09-28] MEDS: amlodipine 5 mg Tablet PO ×2 (09:26→16:15)
[2021-09-28] MEDS: clopidogrel 75 mg Tablet PO (09:26)
[2021-09-28] MEDS: isosorbide mononitrate ER 30 mg Tablet PO ×2 (09:26→20:04)
[2021-09-28 11:20] LABS: Glucose Point of Care 91 mg/dL (70-110)
--- NOTE | 2021-09-28 11:25 | PM.DCS ---
Discharge Providers Date of Admission: 09/26/21 20:14 Date of Discharge: September 28, 2021 Attending Provider at Admission: Evan Pena MD Attending Provider at Discharge: Bobbi Wilkinson MD Primary Care Provider: Lara Jenkins MD Diagnoses at Discharge Discharge Diagnosis (1) Bradycardia: Status: Acute (2) Chest pain: Status: Acute (3) CHF (congestive heart failure): Status: Acute Qualifiers: Heart failure chronicity: chronic Heart failure type: unspecified Qualified Code(s): I50.9 - Heart failure, unspecified (4) Hypertension: Status: Acute (5) CKD (chronic kidney disease) stage 3, GFR 30-59 ml/min: Status: Acute Reason for Visit Reason for Visit: CP Hospital Course Hospital Course History of Present Illness by Dr. Jean Penn Clary is a 76 year old male with past medical history hypertension diabetes, CAD S/P PCI , HFrEF with EF of 45%, gout, chronic sinus bradycardia, came in with chief complaint of acute onset of dizziness, as well as substernal chest pain while he was walking this morning to collect his mail. chest pain was moderate in intensity, nonradiating, transient, it resolved with rest.Patient has known history of chronic sinus bradycardia, according to him he usually stays in upper 40s. When I examined the patient he denied any chest pain shortness of breath dizziness, fever cough headache, nausea vomiting. His heart rate in the ER had dropped lowest to 35 Upon arrival in the ER worked up for above-mentioned complaint. Pertinent imaging studies: X-ray chest: No acute findings EKG: Junctional bradycardia Pertinent labs: WBC 4.2 H&H:10.2/29, PLT : 159 , serum sodium 134 serum potassium 4.8, BUN / serum creatinine 14/ 1.5 , Troponin trend without significant delta, proBNP 9279 Hospital course Patient's bradycardia slightly improved after discontinuation of metoprolol, heart rate range stayed between 50-55, TSH normal, no significant troponin leak, blood pressure stable, he never had any recurrence of chest pain, confusion, shortness of breath. He was saturating well on room air. I requested stress test however this was canceled next day and Dr. Walker recommended event monitor. Imdur was added for blood pressure control. His creatinine has improved at the time of discharge. Patient has allergies to lisinopril and currently he is taking valsartan. EKG consistent with A. fib with intermittent left bundle branch block. Overnight patient heart rate dropped between 20 to 30s, Dr. Walker was notified patient was asleep at that time. Blood pressure at that time 132/57mmhg. When patient was awakened heart rate improved to 50s Echo read by Dr. Walker CONCLUSIONS 1. This is a technically difficult study. 2. Normal left ventricular cavity size. Moderate concentric left ventricular hypertrophy. Low normal left ventricular systolic function. Left ventricular ejection fraction is estimated at 50- 55%. There is hypokinesis of mid to apical inferior funez. Grade II diastolic dysfunction, moderately elevated filling pressures. 3. Normal right ventricular size and systolic function. 4. Mild aortic valve regurgitation. 5. Mild tricuspid and mitral valve regurgitation. 6. When compared to previous study dated 05/03/2019, left ventricular systolic function seems to have decreased somewhat. Physical Exam Narrative: EXAM NARRATIVE: No active chest pain or shortness of breath Heart rate 55 Blood pressure stable S1, S2 Abdomen soft distended with obesity Lower extremity trace edema Patient is awake and alert Nonfocal neuro exam Discharge Data Data Completed and Pending: Completed Studies During Hospitalization Category Date Time Status XR chest 1V desean ble [id number] Stat Exams 09/26/21 17:10 Completed CV. echo complete * [id number] Routine Ultrasound 09/27/21 22:25 Completed Pending at discharge Category Date Time Status Sestamibi Stress Test Request [place] ne Exams 09/27/21 11:38 Ordered Basic Metabolic P robb AM LABS Lab 09/29/21 04:00 Ordered CDIFF [Clostridio ides Difficile PCR ] Routine Lab 09/28/21 07:50 Received Complete Blood Co unt w/Auto AM LABS Lab 09/29/21 04:00 Ordered Magnesium AM LABS Lab 09/29/21 04:00 Ordered Labs from last 24 hours 09/28/21 09/28/21 09/28/21 11:13 06:28 02:21 WBC RBC Hgb Hct MCV MCH MCHC RDW Plt Count MPV Neut % (Auto) Lymph % (Auto) [place] % (Auto) Eos % (Auto) Baso % (Auto) Neut # (Auto) Lymph # (Auto) [place] # (Auto) Eos # (Auto) Baso # (Auto) Nucleated RBC % (a uto) Nucleated RBCs # Sodium Potassium Chloride Carbon Dioxide Anion Gap BUN Creatinine GFR Calculation Glucose POC Glucose 91 104 Calculated Osmolal ity Calcium Magnesium Triglycerides 148 Cholesterol 101 LDL Cholesterol, C alc 45 L HDL Cholesterol 26 L LDL/HDL Ratio 1.73 Cholesterol/HDL Ra slime 3.88 09/28/21 09/28/21 09/27/21 02:21 02:21 19:34 WBC 4.6 RBC 3.15 L Hgb 9.2 L Hct 27.3 L MCV 86.7 MCH 29.2 MCHC 33.7 RDW 13.0 Plt Count 144 MPV 9.3 Neut % (Auto) 67.0 Lymph % (Auto) 20.5 [place] % (Auto) 8.9 Eos % (Auto) 2.8 Baso % (Auto) 0.4 Neut # (Auto) 3.10 Lymph # (Auto) 1.0 [place] # (Auto) 0.4 Eos # (Auto) 0.1 Baso # (Auto) 0.0 Nucleated RBC % (a uto) 0 Nucleated RBCs # 0.0 Sodium 134 L Potassium 4.2 Chloride 103 Carbon Dioxide 20 L Anion Gap 15.2 BUN 10 Creatinine 1.2 GFR Calculation Not Reportable Glucose 91 POC Glucose 97 Calculated Osmolal ity 277 L Calcium 8.0 L Magnesium 1.7 Triglycerides Cholesterol LDL Cholesterol, C alc HDL Cholesterol LDL/HDL Ratio Cholesterol/HDL Ra slime 09/27/21 09/27/21 15:44 13:47 WBC RBC Hgb Hct MCV MCH MCHC RDW Plt Count MPV Neut % (Auto) Lymph % (Auto) [place] % (Auto) Eos % (Auto) Baso % (Auto) Neut # (Auto) Lymph # (Auto) [place] # (Auto) Eos # (Auto) Baso # (Auto) Nucleated RBC % (a uto) Nucleated RBCs # Sodium Potassium Chloride Carbon Dioxide Anion Gap BUN Creatinine GFR Calculation Glucose POC Glucose 188 H 99 Calculated Osmolal ity Calcium Magnesium Triglycerides Cholesterol LDL Cholesterol, C alc HDL Cholesterol LDL/HDL Ratio Cholesterol/HDL Ra slime Vitals: Last Vital Signs Temp 97.9 F 09/28/21 03:30 Pulse 53 L 09/28/21 07:33 Resp 20 H 09/28/21 07:33 BP 158/67 09/28/21 07:33 Pulse Ox 93 09/28/21 03:30 Discharge Plan Discharge Patient Disposition: Home Condition: Stable Prescriptions: New isosorbide mononitrate 30 mg Tablet Extended Release 24 Hr 30 mg PO BID@0900,2100 Qty: 60 RF: 0 Continued furosemide 20 mg tablet 20 mg PO DAILY PRN (Reason: Edema) RF: 0 All Day Allergy (cetirizine) 10 mg capsule 10 mg PO QAM RF: 0 prazosin 1 mg capsule 1 mg PO BID RF: 0 rosuvastatin [Crestor] 20 mg tablet 10 mg PO BEDTIME RF: 0 valsartan 80 mg tablet 80 mg PO QAM RF: 0 clopidogrel 75 mg tablet 75 mg PO QAM RF: 0 aspirin [Aspir-81] 81 mg Tablet,Delayed Release (Dr/Ec) 81 mg PO BEDTIME RF: 0 trazodone 100 mg Tablet 50 mg PO BEDTIME RF: 0 diphenhydramine HCl [Benadryl] 25 mg Capsule 50 mg PO BEDTIME RF: 0 morphine 15 mg Tablet Extended Release 15 mg PO Q12H PRN (Reason: Pain) RF: 0 ProAir HFA 90 mcg/actuation Hfa Aerosol Inhaler 2 puff INHALATION QID PRN (Reason: Shortness Of Breath) RF: 0 Fish Oil Capsule 1,000 mg PO BID RF: 0 febuxostat [Uloric] 80 mg Tablet 80 mg PO QAM RF: 0 Discontinued metoprolol tartrate 100 mg tablet 100 mg PO BID RF: 0 Discharge Orders: Discharge Order (Routine); Ordered 09/28/21 Ordered By: Bobbi Wilkinson Other Ambulatory Orders: MCT/Event Monitor 30 Days (Routine) Timeframe: 30 Days Facility: [facility] - Location: Radiology Ordered By: Bobbi Wilkinson Referrals: Krista Walker MD [Physician] - 10/11/21 11:30 am Lara Jenkins MD [Primary Care Provider] - 10/02/21 11:00 am Discharge Diet: Cardiac Discharge Activity: Increase activity as tolerated Patient Instructions: Hydralazine (By mouth) (Apresoline), Isosorbide Mononitrate (By mouth) (Imdur, Imdur ER, Ismo), Opioid Safety Activity Restrictions/Additional Instructions: Upon discharge, please go straight down to [facility] to be fitted with an Event Monitor Coding Level of Care Code Acute Chg FW DC note Diagnoses Bradycardia R00.1 Chest pain R07.9 CHF (congestive heart failure) I50.9 Heart failure chronicity: chronic Heart failure type: unspecified Hypertension I10 CKD (chronic kidney disease) stage 3, GFR 30-59 ml/min N18.30
--- NOTE | 2021-09-28 13:09 | PC.NURSE ---
[place] [facility] [place] to spouse I just don't feel right in my chest and I have a feeling in my temples spouse notified nurse of patient reports patient repeated the above statement to this nurse Dr Wilkinson notified instructions to call Set Painter message left for Dr. Walker orthostatics performed with patient 129/69 HR 70 laying 131/68 HR 84 sitting 149/65 HR 87 standing patient reported mild discomfort in head a pressure like feeling in temples patient ambulated in long with this nurse patient tolerated well for about 100 ft upon returning to room patient reported 4/10 chest pain in center chest HR 90 upon sitting then quickly down to 60 Blood pressure 174/[address] call [address] received from Dr walker to cancel discharge at this time
--- NOTE | 2021-09-28 13:32 | PM.PN ---
Subjective Subjective: Interval history: Patient was seen this morning, cardiology discontinued cardiac stress test this morning and recommended event monitor however patient started having chest discomfort around 1 PM Decision was changed to do coronary angiogram Overnight events noted, heart rate 20 to 30s which improved as soon as patient woke up heart rate improved to 50s this morning he has been very fatigued lethargic complaining of chest pain on ambulation Vitals/I&O/Wt Last Vital Signs Temp 97.9 F 09/28/21 03:30 Pulse 71 09/28/21 12:42 Resp 24 H 09/28/21 12:42 BP 162/59 09/28/21 12:42 Pulse Ox 93 09/28/21 03:30 09/27/21 09/28/21 09/28/21 22:59 06:59 14:59 Intake Total 17.5 / 1376.0 200 / 1576.0 Balance 17.5 / 1376.0 200 / 1576.0 Weight last 48 hrs Weight 105.823 kg Weight 106.594 kg Physical Exam Narrative: EXAM NARRATIVE: Patient has renal cardiac However no neurological deficit S1, S2 sinus bradycardia Distended abdomen Trace edema of legs Saturating well on room air Data : 09/28/21 02:21 09/28/21 02:21 A&P Assessment and plan (1) Sleep apnea: Status: Acute (2) LBBB (left bundle branch block): Status: Acute (3) Hypertension: Status: Acute (4) CKD (chronic kidney disease) stage 3, GFR 30-59 ml/min: Status: Acute (5) Bradycardia: Status: Acute (6) Unstable angina: Status: Acute Additional A&P Information Unstable angina Plan for angiogram today Sinus bradycardia, improved with discontinuation of metoprolol, no sign of ischemic changes on EKG, however intermittent left middle branch block noted, A. fib with slow ventricular response Not a candidate of AV jagjit blocking agent Chronic kidney disease: Creatinine improved Hypertension: Currently on amlodipine, hydralazine and valsartan Will need outpatient sleep study Angiogram today He will follow-up with further cardiology recommendations Attestations Medical Necessity Statement*: Angiogram today Time Spent in Patient Care: 16 - 35 minutes Coding Level of Care Code Acute Purchasing Department Clerk for g Fwd Diagnoses Sleep apnea G47.30 LBBB (left bundle branch block) I44.7 Hypertension I10 CKD (chronic kidney disease) stage 3, GFR 30-59 ml/min N18.30 Bradycardia R00.1 Unstable angina I20.0
--- NOTE | 2021-09-28 16:11 | PC.NURSE ---
spoke with Dr Walker about patient blood pressure medications instructions to give amlodipine 5mg x1 now and hold this dose of haydralazine
--- NOTE | 2021-09-28 16:20 | P.PN_ITS ---
Subjective Subjective: Interval history: Patient was seen multiple times during the day today. He is a unreliable historian. He stated no chest pain /dizziness throughout the stay but today he complained of chest pain with ambulation. Medications: Reviewed: Yes Vitals/I&O/Wt Last Vital Signs Temp 97.9 F 09/28/21 03:30 Pulse 76 09/28/21 14:00 Resp 24 H 09/28/21 12:42 BP 162/59 09/28/21 12:42 Pulse Ox 93 09/28/21 03:30 09/28/21 09/28/21 09/28/21 06:59 14:59 22:59 Intake Total 200 / 1576.0 Balance 200 / 1576.0 Weight last 48 hrs Weight 233 lb 4.8 oz Physical Exam Narrative: EXAM NARRATIVE: GENERAL: Averagely built and averagely nourished in no acute distress HEENT: Pupils equal round reactive to light. No pallor or icterus. NECK: No JVD. No carotid bruit. CARDIOVASCULAR SYSTEM: S1-S2 regular. bradycardia+; No murmur or gallops. RESPIRATORY SYSTEM: Chest clear to auscultation. No wheezes rhonchi or rubs heard. No use of accessory muscles. ABDOMEN: Soft, nontender and nondistended. Normal bowel sounds present. EXTREMITIES: No cyanosis or edema. No signs of chronic venous insufficiency. METAL OFF BEARER: Patient is alert oriented ?3. No focal neurological deficits. Data : 09/28/21 02:21 09/28/21 02:21 Micro: Microbiology 09/28/21 07:50 C.difficile Toxin B Gene (PCR) - Final Stool Routine Collection A&P Assessment and plan (1) Chest pain: Now that we have established patient (unreliable historian ) has been having some exertional chest discomfort for past week with some recurrence today before going home; unstable angina is a possibility -troponins negative. -Given long first-degree AV block, Mobitz type I second-degree AV block and intermittent 2 is to 1 AV block; stress test was canceled this morning. -I will set him up for coronary angiogram tomorrow morning -Risks and benefits were discussed with the patients. Possible complications were reviewed with the patient as well. -Continue aspirin Plavix statin -continue on Imdur 30 mg twice a day Status: Acute Qualifiers: Chest pain type: unspecified Qualified Code(s): R07.9 - Chest pain, unspecified (2) Bradycardia: Long first-degree AV block, Mobitz type I second-degree AV block and intermittent 2:1 AV block Off AV jagjit blockers. -Monitor closely on telemetry. -Plan for event monitor on discharge Status: Acute (3) CAD (coronary artery disease): h/o remote CABG, status post PCI to mid circumflex in April 2019 (no bypass grafts or stump located on coronary angiogram, ostial LAD with 50% lesion occluded RCA at the origin with collaterals from left side Status: Acute Qualifiers: Coronary Disease-Associated Artery/Lesion type: ho-chunk artery [place] vs. transplanted heart: ho-chunk heart Associated angina: with unstable angina Qualified Code(s): I25.110 - Atherosclerotic heart disease of ho-chunk coronary artery with unstable angina pectoris (4) CHF (congestive heart failure): HFmrEF (LVEF 50-55%) -Appears fairly compensated clinically Status: Acute Qualifiers: Heart failure type: unspecified Heart failure chronicity: chronic Qualified Code(s): I50.9 - Heart failure, unspecified (5) Hypertension: -We will titrate medications based on blood pressure. Status: Acute Qualifiers: Hypertension type: primary hypertension Qualified Code(s): I10 - Essential (primary) hypertension (6) CKD (chronic kidney disease) stage 3, GFR 30-59 ml/min: Status: Acute Additional A&P Information Dyslipidemia NSVT Untreated obstructive sleep apnea: diagnosed several years back per patient's Anemia BPH Attestations Medical Necessity Statement*: Needs hospital stay for management of chest pain and bradycardia Time Spent in Patient Care: Greater than 35 minutes (>than 50% of time spent in counselling and/or direct pt care on unit) . Coding Level of Care Code Acute Inspector Bullet Slugs for g Fwd Diagnoses Chest pain R07.9 Chest pain type: unspecified Bradycardia R00.1 CAD (coronary artery disease) I25.110 Coronary Disease-Associated Artery/Lesion type: ho-chunk artery [place] vs. transplanted heart: ho-chunk heart Associated angina: with unstable angina CHF (congestive heart failure) I50.9 Heart failure type: unspecified Heart failure chronicity: chronic Hypertension I10 Hypertension type: primary hypertension CKD (chronic kidney disease) stage 3, GFR 30-59 ml/min N18.30
[2021-09-28 16:24] LABS: Glucose Point of Care 129 mg/dL (70-110)
--- NOTE | 2021-09-28 16:56 | ECG_ITS ---
[facility] Test Date: 2021-09-28 Pat Name: Virgilio Means Department: Room: 105 Gender: Male Lan Specialist: : 1945 Requested By: Krista Walker Order Number: [id number] Apryl MD: Krista Walker M.D. Measurements Intervals [place] Rate: 58 P: OK: QRS: -19 QRSD: 170 T: 128 QT: 478 QTc: 472 Interpretive Statements SINUS RHYTHM WITH marked first degree AV Block LEFT BUNDLE BRANCH BLOCK [120+ ms QRS DURATION, 80+ ms Q/S IN V1/V2, 85+ ms R IN I/aVL/V5/V6] Compared to ECG 09/27/2021 05:10:06 Left bundle-branch block now present Atrial fibrillation no longer present Myocardial infarct finding no longer present Electronically Signed On 09-28-2021 19:12:22 GRANT MANAGER by Krista Walker M.D. [id number]
[2021-09-28] MEDS: atorvastatin 40 mg Tablet PO (20:04)
[2021-09-28] MEDS: aspirin 81 mg EC Tablet PO (20:14)
[2021-09-28 23:10] LABS: Glucose Point of Care 115 mg/dL (70-110)
[2021-09-29] VITALS (70 sets, daily range): BP systolic 140–183; BP diastolic 59–117; PULSE 49–94; RESP 4–25; TEMP 36.8; O2SAT 95–96
[2021-09-29 03:09] LABS: Basophils % 0.4 %; Eosinophils # 0.1 10^3/uL (0.0-0.8); Hematocrit 29.7 % (42.0-52.0); Lymphocytes # 1.1 10^3/uL (0.8-4.8); Lymphocytes % 20.7 %; Mean Corpuscular HGB Conc 33.7 g/dL (30.0-36.0); Mean Corpuscular Hemoglobin 28.7 pg (28.0-34.0); Mean Corpuscular Volume 85.3 fl (80-94); Monocytes # 0.5 10^3/uL (0.2-0.9); Neutrophils # 3.69 10^3/uL (1.8-7.7); Neutrophils % 67.5 %; Nucleated Red Blood Cells % 0 %; Platelet Count 165 10^3/cmm (130-400); Red Blood Count 3.48 10^6/uL (4.1-5.3); Red Cell Distribution Width 12.9 % (12.1-15.1); White Blood Count 5.5 10^3/uL (4.0-10.0)
[2021-09-29 03:35] LABS: Magnesium 1.7 mg/dL (1.7-2.3)
[2021-09-29 03:36] LABS: Anion Gap 15.7 (5-19); Blood Urea Nitrogen 10 mg/dL (8-23); Calcium 8.3 mg/dL (8.5-10.5); Carbon Dioxide 21 mmol/L (22-29); Chloride 100 mmol/L (98-107); Glucose 108 mg/dL (65-115); Osmolality Calculated 276 mOsm/kg (285-295); Potassium 3.7 mmol/L (3.5-5.1); Sodium 133 mmol/L (136-145)
[2021-09-29] MEDS: sodium chloride 0.9% 1,000 ML 50 ML IV (04:42)
[2021-09-29] MEDS: losartan 50 mg Tablet PO (05:20)
[2021-09-29] MEDS: diphenhydrAMINE 50 mg Capsule PO (05:25)
[2021-09-29 05:50] LABS: Glucose Point of Care 106 mg/dL (70-110)
--- NOTE | 2021-09-29 06:00 | XACV_ITS ---
Exam Room: 105 Ht: 175 cm Wt: 106 kg BSA: 2.31 m2 Gender: Male : 1945 Any Known Allergies: Other Exam Priority: Routine Procedure(s): Procedure Description: Diagnostic procedure Procedure Description: Left Heart Catheterization Diagnostic Cath Status: Elective Diagnostic Findings * Left Main: moderate 50% stenosis, CHARLA: 3 flow. * Mid Left Anterior Descending: obstructive 60% stenosis, CHARLA: 3 flow. * Proximal Circumflex: significant 80% stenosis, CHARLA: 3 flow. * Proximal Right Coronary Artery to Mid Right Coronary Artery: total occlusion, CHARLA: 0 flow. * Third Obtuse Marginal Branch Segment: moderate 50% stenosis, CHARLA: 3 flow. * CIRC AV: obstructive 70% stenosis, CHARLA: 3 flow. * Coronary angiography shows left dominance. Conclusions 1. Please note that due to extreme tortuosity of the right subclavian vessel 2. engagement of catheter was not 3. optimal 4. , 5. angiogram was suboptimal. 6. There is total occlusion coronary artery disease with four vessel disease. Recommendations * 1-Return to [facility] for close monitoring and routine PCI care 2-Statin with LDL goal of 70 mg/dl, aspirin 81 mg p.o. daily for life long 3-CT surgery consults for CABG 4-Optimal medical management for OH 5-Follow up with Dr. Lundberg in four weeks and establish care with primary care physician. Diagnostic RX Recommendation: CABG Pressures Phase:Rest AO : 121 / 64 ( 88 ) @ 8:00:00 AM 124 / 60 ( 86 ) @ 8:01:00 AM 142 / 69 ( 99 ) @ 8:13:00 AM Clinical Evaluation EBL: 5mL-10mL Procedural Details Procedure Consent Obtained. Pre-Procedure Time Out. Identified patient by full name and date of as verbalized by the patient/guarantor. Does the consent match the physician's order: Yes. Accurate & Complete Informed Consent: No. Inpatient/Outpatient History & Physical on Chart: Yes. If H&P is completed, is and addenduem needed: No; If yes, is the addendum complete: N/A. Visualize and Verify Site with Patient/Guarantor: N/A. Relevant Radiology Images available: Yes. Pre-op teaching completed and patient verbalized understanding. The risks, benefits, and alternatives of sedation and/or procedure were discussed by physician. The patient agrees to continue. Procedure started. Correct patient, site and procedure confirmed by cath team. PERRLA. Strong, equal hand disability counselor bilaterally. Lungs clear x 5 lobes. IV Site on Arrival: 20 gauge in the right wrist. IV Fluids: 0.9% NaCl at KVO. 0 mL infused prior to slab depiler operator. Oxygen started at 2liters/min via nasal canula. right groin was prepped with chloroprep then draped in the usual sterile fashion. right radial was prepped with chloroprep then draped in the usual sterile fashion. Physician notified. Baseline sample Acquired. HR: 68 BPM. Equipment: 6F - Radial. Cardiac Cath Pack. MoreixIST Manifold Kit Model BT 2000. Heparinized Saline (2 units/mL), 1000 mL bag. Physician arrived. Physician scrubbed in. Immediate Pre-Procedure Time Out. Correct Patient: Yes; Correct Procedure: Yes; Correct Site: Yes; Correct Patient Position: Yes; Correct Supplies: Yes; Dried Flammable Prep: Yes; Blood Products Available: No;. Lidocaine 1% infiltrated to the right radial. Arterial access obtained. A 5 serbian Po catheter in over wire. Multiple views taken of left coronary artery. Catheter redirected to the RCA. Multiple views taken of right coronary artery. Catheter out. TR band placed. Hemostasis obtained. A TR Band was successful obtaining hemostatsis at the Right Radial artery insertion site. Post Procedure: Pulses reassessed and unchanged. PERRLA. Strong, equal hand disability counselor bilaterally. No VTE prophylaxis required. Medication's Wasted: Lidocaine 1% = 18 mL. Medication's Wasted: Heparin = 1000 units. Medication's Wasted: Other = versed 1 mg. Medication's Wasted: Other = fentanyl 50 cmg. Medication's Wasted: Nitro = 49.8 mg. Total IV fluids: 50 mL. Fluoro: 8:40. Contrast type used: Omnipaque 300 mgI/mL, 500 mL bottle. [id number]. Post-op diagnosis: multi vessel / cabag ref. Complications: none. Estimated blood loss: 5mL-10mL. Responsiveness - Normal response to verbal stimuli; alert and oriented, PERRLA. Airway - Unaffected, no intervention required; spontaneous ventilation. Circulation: W/N/L, pulses unchanged. Nausea/Vomiting: No. Procedure completed. Patient transferred by wheelchair to [facility]. [facility] Clinical Fraility Score: 4: Vulnerable. Manager Of Quality Indications: Worsening Angina. Manager Of Quality Indications: Stable Known CAD. Chest Pain Symptom Assessment: Atypical Angina. Cardiovascular Instability: No. Vital chart was stopped. Access Site Site: Right Radial artery Sheath Size: 6 Fr Hemostasis Method: TR Band Hemostasis Success: Successful Procedure Medications Start: 9:25 AM Stop: 9:25 AM Medication: Benadryl Amount: 50 mg Route: I.V. Start: 9:49 AM Stop: 9:49 AM Medication: Versed Amount: 1 mg Route: I.V. Start: 9:49 AM Stop: 9:49 AM Medication: Fentanyl Amount: 50 mcg Route: I.V. Start: 9:54 AM Stop: 9:54 AM Medication: Nitrogylcerin Amount: 200 mcg Route: I.A. Start: 9:57 AM Stop: 9:57 AM Medication: Heparin Amount: 5000 units Route: I.V. I, the attending physician, have reviewed and verified all procedure medications. Yes, all medications given per verbal order History/Risk Factors Hypertension: Yes Dyslipidemia: No Peripheral Arterial Disease (PAD): No Myocardial Infarction ([place]): No Obesity: No Renal Disease: No Prior Interventions PCI: No CABG: No Valve Surgery: No Report Signatures Finalized by Bobbi Lundberg MD on 10/15/2021 06:02 PM
--- NOTE | 2021-09-29 08:24 | PM.PN ---
Subjective Subjective: Interval history: No active chest pain, no overnight events, patient is n.p.o. Awaiting angiogram this morning, Vitals/I&O/Wt Last Vital Signs Temp 98.5 F 09/28/21 16:34 Pulse 74 09/29/21 06:00 Resp 18 09/29/21 04:00 BP 143/117 09/29/21 05:20 Pulse Ox 96 09/29/21 04:00 09/28/21 09/29/21 09/29/21 22:59 06:59 14:59 Intake Total 0 / 0 Output Total 800 / 800 Balance -800 / -800 Weight last 48 hrs Weight 105.823 kg Physical Exam Narrative: EXAM NARRATIVE: Chest pain-free S1, S2 Saturating well, heart rate in 60s currently on room air Currently looks euvolemic Awake and alert Nonfocal neuro exam Abdomen soft Data : 09/29/21 02:54 09/29/21 02:54 Micro: Microbiology 09/28/21 07:50 C.difficile Toxin B Gene (PCR) - Final Stool Routine Collection A&P Assessment and plan (1) CAD (coronary artery disease): Status: Acute Qualifiers: Coronary Disease-Associated Artery/Lesion type: [place] artery [place] vs. transplanted heart: [place] heart Associated angina: with unstable angina Qualified Code(s): I25.110 - Atherosclerotic heart disease of [place] coronary artery with unstable angina pectoris (2) Unstable angina: Status: Acute (3) Sleep apnea: Status: Acute (4) LBBB (left bundle branch block): Status: Acute (5) CKD (chronic kidney disease) stage 3, GFR 30-59 ml/min: Status: Acute (6) Bradycardia: Status: Acute Additional A&P Information Unstable angina awaiting angiogram Hypertension: We will give him 1 dose of hydralazine 10 mg IV push MEGAN: Resolved Left bundle branch block Bradycardia: Currently heart rate in 60s hemodynamically stable Full code Patient needs sleep study outpatient Attestations Medical Necessity Statement*: Awaiting angiogram Time Spent in Patient Care: less than 15 minutes Coding Level of Care Code Acute Electrician Constructor Supervisor for g Fwd Diagnoses CAD (coronary artery disease) I25.110 Coronary Disease-Associated Artery/Lesion type: [place] artery [place] vs. transplanted heart: [place] heart Associated angina: with unstable angina Unstable angina I20.0 Sleep apnea G47.30 LBBB (left bundle branch block) I44.7 CKD (chronic kidney disease) stage 3, GFR 30-59 ml/min N18.30 Bradycardia R00.1
[2021-09-29] MEDS: clopidogrel 75 mg Tablet PO (09:06)
[2021-09-29] MEDS: amlodipine 10 mg Tablet PO (09:06)
--- NOTE | 2021-09-29 09:20 | PC.NURSE ---
Notifed Dr marte of no administrations of hydrazine IVP due to patient leaving unit for angio gram reported patients current blood pressure before patient left for procedure of 157/74 no new instructions at this time
--- NOTE | 2021-09-29 09:42 | W.PM.OPSUD ---
Surgery/Procedure H&P Update DATE OF PROCEDURE: September 29, 2021 DATE H&P PERFORMED: 09/26/21 H&P UPDATE INFORMATION: I have reviewed H&P completed within last 30 days, I have examined patient prior to procedure, No changes to prior documentation and Changes to prior documentation as noted here PREOP DIAGNOSIS: Bradycardia chest pain PATIENT REASSESSED PRIOR TO SEDATION, WITH NO CHANGE NOTED: Yes PHYSICAL EXAM: alert, oriented x 3 and clear to auscultation bilaterally AIRWAY EVAL/ANESTHESIA PLAN: ASA II and Risks, benefits & alternatives of sedation and/or procedure discussed ADDITIONAL INFORMATION: All risk benefit and alternative for the procedure was explained to patient's family, patient understand risk for contrast-induced nephropathy major minor bleed urgent emergent bypass surgery stroke vascular surgery hematoma pseudoaneurysm. He would like to proceed with it. He is a candidate for DAPT
--- NOTE | 2021-09-29 10:33 | PC.SOCIAL ---
IMM Update Pg. 2 of IMM updated. Initialed, dated, and timed, copy provided at bedside.
--- NOTE | 2021-09-29 10:35 | PC.NURSE ---
patient back to room after cath procedure TR band no hematoma or adverse reaction noted
[2021-09-29] MEDS: hyDRALAzine 25 mg Tablet 50 MG PO ×2 (13:31→21:23)
[2021-09-29] MEDS: isosorbide mononitrate ER 30 mg Tablet PO (13:31)
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
--- NOTE | 2021-09-29 15:16 | USCV_ITS ---
Virgilio Means Age: 76 Gender: M : 1945 Exam Date: 09/29/2021 16:20 Ordering Phys: Krista Walker MD ([email or web address]) Technologist: Bin Baldwin Exam Location: [facility] [place] Indication: pre cabg Risk Factors: Previous Vascular Surgery: Right Brachial BP: / Left Brachial BP: / Right Left Velocity (cm/s) Spectral Plaque Velocity (cm/s) Spectral Plaque Syst/Diast Broadening Syst/Diast Broadening 69.70/ 8.50 Prox CCA 129.00/ 12.10 91.70/ 18.60 Mid CCA 126.80/ 14.30 117.10/17.10 Distal CCA 117.10/ 13.70 84.70/ 10.10 Prox ICA 86.20 / 17.10 55.90/ 13.20 Mid ICA 73.80 / 15.50 34.20/ 8.50 Distal ICA 104.90/ 17.90 97.90 ECA 153.80 0.61 ICA/CCA 0.58 Antegrade Vertebral Antegrade 35.30/ 13.60 cm/s 66.80/ 17.90 cm/s Tri Subclavian Tri 106.5 156.4 0 0 FINDINGS Minimal plaques at the right bifurcation. Mild to moderate heterogeneous plaques at the left bifurcation and proximal internal carotid artery. Antegrade flow in the vertebral arteries bilaterally. Normal Doppler flow velocities in the external carotid and subclavian arteries bilaterally CONCLUSIONS Mild to moderate heterogeneous plaques at the left bifurcation and proximal internal carotid artery,consistent with less than 50% stenosis. Minimal plaques at the right bifurcation suggesting less than 50% stenosis. No significant stenosis in the vertebral, subclavian or external carotid arteries, based on the Doppler flow velocities Dr David Hanna MD [facility] (Electronically Signed) Final Date: 30 September 2021 12:08 S
[2021-09-29] MEDS: potassium chloride ER 20 mEq Tablet PO (15:58)
[2021-09-29] MEDS: pantoprazole DR 40 mg Tablet PO (15:58)
[2021-09-29 16:27] LABS: Estmated Average Glucose 108; Hemoglobin A1C 5.4 % (4.0-6.0)
[2021-09-29] MEDS: heparin drip 25,000 UNIT/500 ML PREMIX 31 UNIT IV (16:28)
--- NOTE | 2021-09-29 19:54 | PC.NURSE ---
Addendum entered by Inez Dockery RN 09/29/21 19:59: Magnesium will be late administration due to no Iv access for some time Original Note: 1640 Patient sat up in bed IV was pulled and dislodged from securement patient called nurse to room and found bleeding significantly from IV site pressure dressing placed and bleeding stopped patient cleaned up and new linen Multiple attempts made by this nurse and others with aid of ultrasound was able to obtain small IV access in left upper arm at 1930 patient tolerated all attempts well however scattered bruising is present to upper extremities due to multiple failed attempts at IV access
[2021-09-29] MEDS: atorvastatin 40 mg Tablet PO (21:22)
[2021-09-29 21:51] LABS: Adenovirus Not Detected (NOT DETECT); Chlamydia Pneumoniae Not Detected (NOT DETECT); Coronavirus 229E,HKU1,NL63,OC4 Not Detected (NOT DETECT); Human Metapneumovirus Not Detected (NOT DETECT); Human Rhinovirus/Enterovirus Not Detected (NOT DETECT); Influenza A Not Detected (NOT DETECT); Influenza A H1 Not Detected (NOT DETECT); Influenza A H1-2009 Not Detected (NOT DETECT); Influenza A H3 Not Detected (NOT DETECT); Influenza B Not Detected (NOT DETECT); Mycoplasma Pneumoniae Not Detected (NOT DETECT); Parainfluenza Virus Type 1 Not Detected (NOT DETECT); Parainfluenza Virus Type 2 Not Detected (NOT DETECT); Parainfluenza Virus Type 3 Not Detected (NOT DETECT); Parainfluenza Virus Type 4 Not Detected (NOT DETECT); Respiratory Syncytial Virus A Not Detected (NOT DETECT); Respiratory Syncytial Virus B Not Detected (NOT DETECT); SARS-COV-2 Not Detected (NOT DETECT)
[2021-09-29 22:08] LABS: Partial Thromboplastin Time 43.3 SECONDS (23.9-36.7)
[2021-09-29] MEDS: heparin 5,000 unit/mL INJ 1 mL IV (22:39)
[2021-09-30] VITALS (58 sets, daily range): BP systolic 156–174; BP diastolic 67–89; PULSE 46–121; RESP 3–30; TEMP 36.6; O2SAT 96–100
[2021-09-30] MEDS: losartan 50 mg Tablet PO (05:29)
[2021-09-30 05:55] LABS: Basophils % 0.3 %; Eosinophils # 0.2 10^3/uL (0.0-0.8); Eosinophils % 2.4 %; Hematocrit 29.3 % (42.0-52.0); Hemoglobin 9.9 g/dL (11.7-16.6); Lymphocytes # 1.1 10^3/uL (0.8-4.8); Lymphocytes % 16.2 %; Mean Corpuscular HGB Conc 33.8 g/dL (30.0-36.0); Mean Corpuscular Hemoglobin 29.7 pg (28.0-34.0); Mean Platelet Volume 9.2 fL (7.4-10.4); Monocytes # 0.6 10^3/uL (0.2-0.9); Monocytes % 9.2 %; Neutrophils # 4.75 10^3/uL (1.8-7.7); Neutrophils % 71.4 %; Nucleated Red Blood Cells % 0 %; Platelet Count 159 10^3/cmm (130-400); Red Blood Count 3.33 10^6/uL (4.1-5.3); Red Cell Distribution Width 13.3 % (12.1-15.1); White Blood Count 6.7 10^3/uL (4.0-10.0)
[2021-09-30 06:36] LABS: Partial Thromboplastin Time 143.8 SECONDS (23.9-36.7)
[2021-09-30 06:51] LABS: Alanine Aminotransferase 16 U/L (0-41); Albumin Level 3.5 g/dL (3.5-5.2); Alkaline Phosphatase 60 IU/L (40-130); Aspartate Amino Transferase 17 U/L (0-40); Blood Urea Nitrogen 10 mg/dL (8-23); Carbon Dioxide 18 mmol/L (22-29); Chloride 104 mmol/L (98-107); Globulin 2.6 g/dL (1.3-4.6); Glucose 110 mg/dL (65-115); Magnesium 1.8 mg/dL (1.7-2.3); Osmolality Calculated 280 mOsm/kg (285-295); Sodium 135 mmol/L (136-145); Total Bilirubin 0.3 mg/dL (0.15-1.2); Total Protein 6.1 g/dL (6.6-8.7)
[2021-09-30] MEDS: heparin drip 25,000 UNIT/500 ML PREMIX 29 UNIT IV (07:39)
[2021-09-30 08:05] LABS: Glucose Point of Care 111 mg/dL (70-110)
--- NOTE | 2021-09-30 08:21 | P.PN_ITS ---
Subjective Subjective: Interval history: Patient has been accepted to [facility] by Dr. Bustamante, awaiting bed No overnight events, patient is feeling better After today's questioning I realized that he is still unsure about his coronary angiogram results, I asked patient to wait until gunstock repairer follows up today Vitals/I&O/Wt Last Vital Signs Temp 98.2 F 09/29/21 20:00 Pulse 64 09/30/21 07:41 Resp 19 H 09/30/21 07:41 BP 174/84 09/30/21 07:41 Pulse Ox 99 09/30/21 07:41 09/29/21 09/30/21 09/30/21 22:59 06:59 14:59 Intake Total 243.717 / 653.492 5817 / 1243.717 308.283 / 308.283 Balance 243.717 / 685.142 9240 / 1243.717 308.283 / 308.283 Weight last 48 hrs Weight 101.196 kg Physical Exam Narrative: EXAM NARRATIVE: He is laying comfortably in his bed S1, S2 Euvolemic Saturating well on room air Nonfocal neuro exam Appropriate mood and affect Pleasant and cooperative during my evaluation Data : 09/30/21 04:50 09/30/21 04:50 A&P Assessment and plan (1) Left main coronary artery disease: Status: Acute (2) Multi-vessel coronary artery stenosis: Status: Acute (3) Unstable angina: Status: Acute (4) LBBB (left bundle branch block): Status: Acute (5) Hypertension: Status: Acute Qualifiers: Hypertension type: primary hypertension Qualified Code(s): I10 - Essential (primary) hypertension (6) CKD (chronic kidney disease) stage 3, GFR 30-59 ml/min: Status: Acute (7) Bradycardia: Status: Acute Additional A&P Information Multivessel disease detected on coronary angiogram on 09/29 Patient will need CABG He has been accepted at [facility] by Dr. Bustamante We are waiting for bed No active chest pain High APTT Titrate heparin Continue aspirin, statin, Patient is still hypertensive currently on losartan, Imdur and hydralazine, increase the dose of Imdur Cardiac diet Right radial cath site no active bleeding or hematoma signs Chronic kidney disease, creatinine is at baseline we will discontinue IV fluids Attestations Medical Necessity Statement*: waiting for bed Time Spent in Patient Care: less than 15 minutes Coding Level of Care Code Acute Retail Sales Vitamin Consultant for Chg Fwd Diagnoses Left main coronary artery disease I25.10 Multi-vessel coronary artery stenosis I25.10 Unstable angina I20.0 LBBB (left bundle branch block) I44.7 Hypertension I10 Hypertension type: primary hypertension CKD (chronic kidney disease) stage 3, GFR 30-59 ml/min N18.30 Bradycardia R00.1
--- NOTE | 2021-09-30 09:03 | PM.PN ---
Subjective Subjective: Interval history: Cardiology coverage 76-year-old white male, is admitted to hospital with complaints of chest pain and shortness of breath. Underwent a cardiac reservation which revealed severe three-vessel coronary artery disease including left main. He is awaiting surgical intervention at the [facility] in [place]. Patient is known to have high blood pressure, dyslipidemia, chronic kidney disease, anemia. Patient continues to remain stable. No chest pain or chest tightness. No unusual shortness of breath. No significant arrhythmias on the monitor. Vital signs remained stable. Medications: Reviewed: Yes Medication Review Details: Current Medications Acetaminophen (Acetaminophen 325 Mg Tablet) 650 mg PO Q6H PRN PRN Reason: Mild/Mod Pain Or Temp >/= 101 Al Hydrox/Mg Hydrox/Simethicone (Trau-Ttu-Pudlkhnjz-Alba 30 Ml Udc) 30 ml PO Q15M PRN PRN Reason: INDIGESTION Amlodipine Besylate (Amlodipine 10 Mg Tablet) 10 mg PO DAILY [facility] Last Admin: 09/29/21 09:06 Dose: 10 mg Documented by: Aspirin (Aspirin 325 Mg Tablet) 325 mg PO DAILY [facility] Atorvastatin Calcium (Atorvastatin 40 Mg Tablet) 40 mg PO BEDTIME [facility] Last Admin: 09/29/21 21:22 Dose: 40 mg Documented by: Atropine Sulfate (Atropine 1 Mg/Ml Sdv 1 Ml) 0.5 mg IVP PRN PRN PRN Reason: Symptomatic bradycardia Bisacodyl (Bisacodyl 5 Mg Tablet) 10 mg PO DAILY PRN; Protocol PRN Reason: Constipation (see protocol) Dextrose (Dextrose 50% Syringe 50 Ml) 25 ml IVP ONCE PRN; Protocol PRN Reason: hypoglycemia protocol Dextrose (Dextrose 50% Syringe 50 Ml) 50 ml IVP PRN PRN; Protocol PRN Reason: hypoglycemia protocol Fentanyl (Fentanyl 50 Mcg/Ml Inj 2ml) 50 mcg IVP PRN PRN PRN Reason: Prior to sheath removal Glucagon (Glucagon 1 Mg/Ml Inj 1 Ml) 1 mg IM ONCE PRN; Protocol PRN Reason: Adult Acute Hypoglycemia Prot. Heparin Sodium (Porcine) (Heparin 5,000 Unit/Ml Inj 1 Ml) 0 unit IV PRN PRN; Protocol PRN Reason: Heparin weight-base protocol Last Admin: 09/29/21 22:39 Dose: 2,200 unit Documented by: Hydralazine HCl (Hydralazine 25 Mg Tablet) 50 mg PO TID [facility] Last Admin: 09/29/21 21:23 Dose: 50 mg Documented by: Dextrose (D5w) 500 mls @ 100 mls/hr IV ONCE PRN; Protocol PRN Reason: Adult Acute Hypoglycemia Prot Heparin Sodium/Sodium Chloride (Heparin Drip) 25,000 unit in 500 mls @ 0 mls/hr IV .Q0M [facility]; Protocol Last Admin: 09/30/21 07:39 Dose: 13.7 unit/kg/hr, 29 mls/hr Documented by: Insulin Human Lispro (Insulin Lispro 100 Unit/1 Ml) 0 unit SUBCUT TIDWM [facility]; Protocol Last Admin: 09/30/21 08:29 Dose: Not Given Documented by: Isosorbide Mononitrate (Isosorbide Mononitrate Er 30 Mg Tablet) 60 mg PO DIRECTED [facility] Losartan Potassium (Losartan 50 Mg Tablet) 50 mg PO QAM [facility] Last Admin: 09/30/21 05:29 Dose: 50 mg Documented by: Magnesium Hydroxide (Magnesium Hydroxide 30 Ml Udc) 30 ml PO DAILY PRN PRN Reason: CONSTIPATION Naloxone HCl (Naloxone 0.4 Mg/Ml Sdv) 0.1 mg IVP Q2M PRN PRN Reason: RESPIRATORY RATE < 8/MIN Nitroglycerin (Nitroglycerin 0.4 Mg Sublingual Tablet) 0.4 mg SUBLINGUAL Q5M PRN PRN Reason: CHEST PAIN Non-Formulary Medication (Febuxostat [Uloric]) 80 mg PO QAM [facility] Last Admin: 09/30/21 05:35 Dose: Not Given Documented by: Ondansetron HCl (Ondansetron 2 Mg/Ml Sdv 2 Ml) 4 mg IVP Q8H PRN PRN Reason: vomiting, or N/V if npo Pantoprazole Sodium (Pantoprazole Dr 40 Mg Tablet) 40 mg PO DAILY [facility] Last Admin: 09/29/21 15:58 Dose: 40 mg Documented by: Temazepam (Temazepam 15 Mg Capsule) 15 mg PO BEDTIME PRN PRN Reason: INSOMNIA Vitals/I&O/Wt Last Vital Signs Temp 98.2 F 09/29/21 20:00 Pulse 64 09/30/21 07:41 Resp 19 H 09/30/21 07:41 BP 174/84 09/30/21 07:41 Pulse Ox 99 09/30/21 07:41 09/29/21 09/30/21 09/30/21 22:59 06:59 14:59 Intake Total 243.717 / 686.227 5361 / 1243.717 308.283 / 308.283 Balance 243.717 / 176.129 8604 / 1243.717 308.283 / 308.283 Weight last 48 hrs Weight 223 lb 1.6 oz Physical Exam Narrative: EXAM NARRATIVE: GENERAL: The patient is alert and oriented times three. Not in any acute distress. [] HEENT: No significant pallor, icterus or lymphadenopathy.Oral cavity: There are no mucous membrane lesions. NECK: Trachea appears to be central. No masses noted. No JVD or thyromegaly appreciated. RESPIRATORY: Chest is symmetrical. No intercostals muscle retraction or any accessory muscle activation. There is no chest wall tenderness. Breath sounds are heard bilaterally. No rales or rhonchi heard. No evidence of any consolidation. [] BREASTS: Deferred. [] HEART: The heart sounds are normal. No S3 or S4. [No significant murmurs] []. No pericardial rub ABDOMEN: No vessel pulsations or distention. No tenderness. No organomegaly appreciated. Bowel sounds are normally heard. [] : Deferred. [] RECTAL: Deferred. [] LYMPHATIC: No lymphadenopathy noted in the neck or groin. [] EXTREMITIES: No edema or cyanosis. No clubbing. Peripheral pulses are palpated in fairly good volume and amplitude MUSCULOSKELETAL: No acute joint deformities or swelling SKIN: There are no significant rashes or ecchymosis NEUROPSYCHIATRIC: The patient is alert and oriented x3. Appears to be in a good mood. No tremors or rigidity noted. [] Data : 09/30/21 04:50 09/30/21 04:50 Other Labs: Laboratory Last Values WBC 6.7 10^3/uL (4.0-10.0) 09/30/21 04:50 RBC 3.33 10^6/uL (4.1-5.3) L 09/30/21 04:50 Hgb 9.9 g/dL (11.7-16.6) L 09/30/21 04:50 Hct 29.3 % (42.0-52.0) L 09/30/21 04:50 MCV 88.0 fl (80-94) 09/30/21 04:50 MCH 29.7 pg (28.0-34.0) 09/30/21 04:50 MCHC 33.8 g/dL (30.0-36.0) 09/30/21 04:50 RDW 13.3 % (12.1-15.1) 09/30/21 04:50 Plt Count 159 10^3/cmm (130-400) 09/30/21 04:50 MPV 9.2 fL (7.4-10.4) 09/30/21 04:50 Neut % (Auto) 71.4 % 09/30/21 04:50 Lymph % (Auto) 16.2 % 09/30/21 04:50 [place] % (Auto) 9.2 % 09/30/21 04:50 Eos % (Auto) 2.4 % 09/30/21 04:50 Baso % (Auto) 0.3 % 09/30/21 04:50 Neut # (Auto) 4.75 10^3/uL (1.8-7.7) 09/30/21 04:50 Lymph # (Auto) 1.1 10^3/uL (0.8-4.8) 09/30/21 04:50 [place] # (Auto) 0.6 10^3/uL (0.2-0.9) 09/30/21 04:50 Eos # (Auto) 0.2 10^3/uL (0.0-0.8) 09/30/21 04:50 Baso # (Auto) 0.0 10^3/uL (0.0-0.1) 09/30/21 04:50 Nucleated RBC % (auto) 0 % 09/30/21 04:50 Nucleated RBCs # 0.0 /100WBC 09/30/21 04:50 APTT 143.8 SECONDS (23.9-36.7) H D 09/30/21 04:50 Sodium 135 mmol/L (136-145) L 09/30/21 04:50 Potassium 4.0 mmol/L (3.5-5.1) 09/30/21 04:50 Chloride 104 mmol/L (98-107) 09/30/21 04:50 Carbon Dioxide 18 mmol/L (22-29) L 09/30/21 04:50 Anion Gap 17.0 (5-19) 09/30/21 04:50 BUN 10 mg/dL (8-23) 09/30/21 04:50 Creatinine 1.3 mg/dL (0.7-1.2) H 09/30/21 04:50 GFR Calculation Not Reportable 09/30/21 04:50 Glucose 110 mg/dL (65-115) 09/30/21 04:50 POC Glucose 111 mg/dL (70-110) H 09/30/21 06:40 Estimat Average Glucose 108 09/29/21 15:41 Hemoglobin A1c 5.4 % (4.0-6.0) 09/29/21 15:41 Calculated Osmolality 280 mOsm/kg (285-295) L 09/30/21 04:50 Calcium 9.0 mg/dL (8.5-10.5) 09/30/21 04:50 Magnesium 1.8 mg/dL (1.7-2.3) 09/30/21 04:50 Total Bilirubin 0.3 mg/dL (0.15-1.2) 09/30/21 04:50 AST 17 U/L (0-40) 09/30/21 04:50 ALT 16 U/L (0-41) 09/30/21 04:50 Alkaline Phosphatase 60 IU/L (40-130) 09/30/21 04:50 Creatine Kinase 74 U/L (39-308) 09/26/21 16:39 Troponin T Baseline 33 ng/L (0-15) H 09/26/21 16:39 Troponin T 120 Minute 34.03 ng/L (0-15) H 09/26/21 19:05 Delta Troponin T 1.03 ABS# (0-10) 09/26/21 19:05 Troponin T Hi Sens 6Hr 34.74 ng/L (0-15) H 09/26/21 22:21 Troponin T Hi Sens 6Hr Delta 1.74 ng/L (0-12) 09/26/21 22:21 NT-Pro-B Natriuret Pep 9279 pg/mL (0-125) H 09/26/21 16:39 Total Protein 6.1 g/dL (6.6-8.7) L 09/30/21 04:50 Albumin 3.5 g/dL (3.5-5.2) 09/30/21 04:50 Globulin 2.6 g/dL (1.3-4.6) 09/30/21 04:50 Triglycerides 148 mg/dL (0-150) 09/28/21 02:21 Cholesterol 101 mg/dL (0-200) 09/28/21 02:21 LDL Cholesterol, Calc 45 mg/dL (50-129) L 09/28/21 02:21 HDL Cholesterol 26 mg/dL (60-100) L 09/28/21 02:21 LDL/HDL Ratio 1.73 RATIO (0.00-3.22) 09/28/21 02:21 Cholesterol/HDL Ratio 3.88 mg/dL (1.0-5.00) 09/28/21 02:21 TSH 1.69 uIU/mL (0.27-4.20) 09/27/21 05:20 Coronavirus 229E (PCR) Not detected (NOT DETECT) 09/29/21 15:50 SARS-CoV-2 (PCR) Not detected (NOT DETECT) 09/29/21 15:50 A&P Assessment and plan (1) Atherosclerotic heart disease of [place] coronary artery with other forms of angina pectoris: Patient has severe three-vessel coronary artery disease including the left main. Currently remained stable. He has no more chest pain. At this point, he may continue on the current medications. Patient is awaiting transfer to the [facility] in [place] for possible coronary artery bypass surgery Status: Acute (2) CKD (chronic kidney disease) stage 3, GFR 30-59 ml/min: Currently the kidney function appears to be stable Status: Acute Qualifiers: Chronic kidney disease stage 3 subtype: stage 3a (GFR 45-59) Qualified Code(s): N18.31 - Chronic kidney disease, stage 3a (3) Sleep apnea: Patient may use the CPAP machine. Status: Acute Qualifiers: Sleep apnea type: obstructive Qualified Code(s): G47.33 - Obstructive sleep apnea (adult) (pediatric) (4) Hypertension: Currently the blood pressure is a stage II. Status: Acute Qualifiers: Hypertension type: primary hypertension Qualified Code(s): I10 - Essential (primary) hypertension (5) Dyslipidemia: Continue on the current management. 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
[2021-09-30] MEDS: pantoprazole DR 40 mg Tablet PO (10:03)
[2021-09-30] MEDS: hyDRALAzine 25 mg Tablet 50 MG PO ×3 (10:04→20:35)
[2021-09-30] MEDS: amlodipine 10 mg Tablet PO (10:04)
[2021-09-30] MEDS: aspirin 325 mg Tablet PO (10:04)
--- NOTE | 2021-09-30 11:25 | PC.NURSE ---
blood glucose 206
[2021-09-30 11:45] LABS: Glucose Point of Care 206 mg/dL (70-110)
[2021-09-30] MEDS: insulin lispro 100 unit/1 mL SUBCUT ×2 (13:45→17:15)
[2021-09-30 14:50] LABS: Partial Thromboplastin Time 131.8 SECONDS (23.9-36.7)
--- NOTE | 2021-09-30 15:47 | PC.NURSE ---
blood glucose 297
[2021-09-30 16:11] LABS: Glucose Point of Care 297 mg/dL (70-110)
[2021-09-30 20:20] LABS: Glucose Point of Care 177 mg/dL (70-110)
[2021-09-30 20:28] LABS: Partial Thromboplastin Time 96.6 SECONDS (23.9-36.7)
[2021-09-30] MEDS: atorvastatin 40 mg Tablet PO (20:35)
--- NOTE | 2021-09-30 21:51 | PC.NURSE ---
Patient transferred to [facility] for plan CABG at this time. Patient left in good spirits. Denies pain or needs presently. No distress observed. Update report called to BRIAN Gill.
--- NOTE | 2021-10-04 15:47 | P.DS_ITS ---
Discharge Providers Date of Admission: 09/26/21 20:14 Date of Discharge: September 30, 2021 Attending Provider at Admission: Evan Pena MD Attending Provider at Discharge: Bobbi Wilkinson MD Consults: Dr. Lundberg Primary Care Provider: Lara Jenkins MD Diagnoses at Discharge Discharge Diagnosis (1) Atherosclerotic heart disease of [place] coronary artery with other forms of angina pectoris: Status: Acute (2) CKD (chronic kidney disease) stage 3, GFR 30-59 ml/min: Qualifiers: Chronic kidney disease stage 3 subtype: stage 3a (GFR 45-59) Qualified Code(s): N18.31 - Chronic kidney disease, stage 3a (3) Sleep apnea: Status: Acute Qualifiers: Sleep apnea type: obstructive Qualified Code(s): G47.33 - Obstructive sleep apnea (adult) (pediatric) (4) Hypertension: Qualifiers: Hypertension type: primary hypertension Qualified Code(s): I10 - Essential (primary) hypertension (5) Dyslipidemia: Status: Acute Reason for Visit Reason for Visit: CP Hospital Course Hospital Course History of Present Illness by Dr. Jean Penn Clary is a 76 year old male with past medical history hypertension diabetes, CAD S/P PCI , HFrEF with EF of 45%, gout, chronic sinus bradycardia, came in with chief complaint of acute onset of dizziness, as well as substernal chest pain while he was walking this morning to collect his mail. chest pain was moderate in intensity, nonradiating, transient, it resolved with rest.Patient has known history of chronic sinus bradycardia, according to him he usually stays in upper 40s. When I examined the patient he denied any chest pain shortness of breath dizziness, fever cough headache, nausea vomiting. His heart rate in the ER had dropped lowest to 35 Upon arrival in the ER worked up for above-mentioned complaint. Pertinent imaging studies: X-ray chest: No acute findings EKG: Junctional bradycardia Pertinent labs: WBC 4.2 H&H:10.2/29, PLT : 159 , serum sodium 134 serum potassium 4.8, BUN /? serum creatinine 14/ 1.5 , Troponin trend without significant delta, proBNP 9279 Hospital course Cardiology was consulted for patient's symptomatic bradycardia and active chest pain. Patient went for coronary angiogram on 09/29, he was found to have triple- vessel disease, he was transferred to [facility] for CABG, Dr. Bustamante accepted the patient. Please see cardiology consult note for further details Physical Exam Narrative: EXAM NARRATIVE: He is laying comfortably in his bed S1, S2 Euvolemic Saturating well on room air Nonfocal neuro exam Appropriate mood and affect Pleasant and cooperative during my evaluation Discharge Data Studies Completed and Pending Completed Studies During Hospitalization Category Date Time Status CT chest abd pel wo con Routine Cat Scan 09/29/21 15:16 Completed XR chest 1V portable [id number] Stat Exams 09/26/21 17:10 Completed CV carotid duplex BI* [id number] Routine Ultrasound 09/29/21 15:16 Completed CV. 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 Chest/Abdomen/Pelvis CT 09/29/21 15:16 IMPRESSION: Multivessel atherosclerotic disease which involves the coronary arteries. IMPRESSION: Multivessel atherosclerotic disease which involves the coronary arteries. COMMENTS: Consistent with the [employer]'s Incidental Findings Committee white paper (J Am Liam Radiol 2018): Any incidental renal lesion less than 1 cm or classified as too small to characterize, or any incidental cystic renal lesion characterized as simple-appearing, is likely benign. No follow-up imaging is recommended for these lesions per consensus recommendations based on imaging criteria. Laboratory Results WBC 6.7 10^3/uL (4.0-10.0) 09/30/21 04:50 RBC 3.33 10^6/uL (4.1-5.3) L 09/30/21 04:50 Hgb 9.9 g/dL (11.7-16.6) L 09/30/21 04:50 Hct 29.3 % (42.0-52.0) L 09/30/21 04:50 MCV 88.0 fl (80-94) 09/30/21 04:50 MCH 29.7 pg (28.0-34.0) 09/30/21 04:50 MCHC 33.8 g/dL (30.0-36.0) 09/30/21 04:50 RDW 13.3 % (12.1-15.1) 09/30/21 04:50 Plt Count 159 10^3/cmm (130-400) 09/30/21 04:50 MPV 9.2 fL (7.4-10.4) 09/30/21 04:50 Neut % (Auto) 71.4 % 09/30/21 04:50 Lymph % (Auto) 16.2 % 09/30/21 04:50 [place] % (Auto) 9.2 % 09/30/21 04:50 Eos % (Auto) 2.4 % 09/30/21 04:50 Baso % (Auto) 0.3 % 09/30/21 04:50 Neut # (Auto) 4.75 10^3/uL (1.8-7.7) 09/30/21 04:50 Lymph # (Auto) 1.1 10^3/uL (0.8-4.8) 09/30/21 04:50 [place] # (Auto) 0.6 10^3/uL (0.2-0.9) 09/30/21 04:50 Eos # (Auto) 0.2 10^3/uL (0.0-0.8) 09/30/21 04:50 Baso # (Auto) 0.0 10^3/uL (0.0-0.1) 09/30/21 04:50 Nucleated RBC % (auto) 0 % 09/30/21 04:50 Nucleated RBCs # 0.0 /100WBC 09/30/21 04:50 APTT 96.6 SECONDS (23.9-36.7) H 09/30/21 20:01 Sodium 135 mmol/L (136-145) L 09/30/21 04:50 Potassium 4.0 mmol/L (3.5-5.1) 09/30/21 04:50 Chloride 104 mmol/L (98-107) 09/30/21 04:50 Carbon Dioxide 18 mmol/L (22-29) L 09/30/21 04:50 Anion Gap 17.0 (5-19) 09/30/21 04:50 BUN 10 mg/dL (8-23) 09/30/21 04:50 Creatinine 1.3 mg/dL (0.7-1.2) H 09/30/21 04:50 GFR Calculation Not Reportable 09/30/21 04:50 Glucose 110 mg/dL (65-115) 09/30/21 04:50 POC Glucose 177 mg/dL (70-110) H 09/30/21 20:01 Estimat Average Glucose 108 09/29/21 15:41 Hemoglobin A1c 5.4 % (4.0-6.0) 09/29/21 15:41 Calculated Osmolality 280 mOsm/kg (285-295) L 09/30/21 04:50 Calcium 9.0 mg/dL (8.5-10.5) 09/30/21 04:50 Magnesium 1.8 mg/dL (1.7-2.3) 09/30/21 04:50 Total Bilirubin 0.3 mg/dL (0.15-1.2) 09/30/21 04:50 AST 17 U/L (0-40) 09/30/21 04:50 ALT 16 U/L (0-41) 09/30/21 04:50 Alkaline Phosphatase 60 IU/L (40-130) 09/30/21 04:50 Creatine Kinase 74 U/L (39-308) 09/26/21 16:39 Troponin T Baseline 33 ng/L (0-15) H 09/26/21 16:39 Troponin T 120 Minute 34.03 ng/L (0-15) H 09/26/21 19:05 Delta Troponin T 1.03 ABS# (0-10) 09/26/21 19:05 Troponin T Hi Sens 6Hr 34.74 ng/L (0-15) H 09/26/21 22:21 Troponin T Hi Sens 6Hr Delta 1.74 ng/L (0-12) 09/26/21 22:21 NT-Pro-B Natriuret Pep 9279 pg/mL (0-125) H 09/26/21 16:39 Total Protein 6.1 g/dL (6.6-8.7) L 09/30/21 04:50 Albumin 3.5 g/dL (3.5-5.2) 09/30/21 04:50 Globulin 2.6 g/dL (1.3-4.6) 09/30/21 04:50 Triglycerides 148 mg/dL (0-150) 09/28/21 02:21 Cholesterol 101 mg/dL (0-200) 09/28/21 02:21 LDL Cholesterol, Calc 45 mg/dL (50-129) L 09/28/21 02:21 HDL Cholesterol 26 mg/dL (60-100) L 09/28/21 02:21 LDL/HDL Ratio 1.73 RATIO (0.00-3.22) 09/28/21 02:21 Cholesterol/HDL Ratio 3.88 mg/dL (1.0-5.00) 09/28/21 02:21 TSH 1.69 uIU/mL (0.27-4.20) 09/27/21 05:20 Coronavirus 229E (PCR) Not detected (NOT DETECT) 09/29/21 15:50 SARS-CoV-2 (PCR) Not detected (NOT DETECT) 09/29/21 15:50 Vitals Last Vital Signs Temp 97.8 F 09/30/21 21:54 Pulse 90 09/30/21 21:54 Resp 25 H 09/30/21 21:54 BP 165/89 09/30/21 21:54 Pulse Ox 99 09/30/21 15:41 Discharge Plan Discharge Patient Disposition: Xfer Short-Term Hosp Condition: Stable Prescriptions: New isosorbide mononitrate 30 mg Tablet Extended Release 24 Hr 30 mg PO BID@0900,2100 Qty: 60 0RF amlodipine 10 mg tablet 10 mg PO DAILY Qty: 30 2RF Continued furosemide 20 mg tablet 20 mg PO DAILY PRN (Reason: Edema) 0RF All Day Allergy (cetirizine) 10 mg capsule 10 mg PO QAM 0RF prazosin 1 mg capsule 1 mg PO BID 0RF rosuvastatin [Crestor] 20 mg tablet 10 mg PO BEDTIME 0RF valsartan 80 mg tablet 80 mg PO QAM 0RF clopidogrel 75 mg tablet 75 mg PO QAM 0RF aspirin 81 mg Tablet,Delayed Release (Dr/Ec) 81 mg PO BEDTIME 0RF trazodone 100 mg Tablet 50 mg PO BEDTIME 0RF diphenhydramine HCl [Benadryl] 25 mg Capsule 50 mg PO BEDTIME 0RF morphine 15 mg Tablet Extended Release 15 mg PO Q12H PRN (Reason: Pain) 0RF ProAir HFA 90 mcg/actuation Hfa Aerosol Inhaler 2 puff INHALATION QID PRN (Reason: Shortness Of Breath) 0RF omega-3 fatty acids Capsule 1,000 mg PO BID 0RF febuxostat [Uloric] 80 mg Tablet 80 mg PO QAM 0RF Discontinued metoprolol tartrate 100 mg tablet 100 mg PO BID 0RF Other Ambulatory Orders: MCT/Event Monitor 30 Days (Routine) Timeframe: 30 Days Facility: [facility] - Location: Radiology Ordered By: Bobbi Wilkinson Sleep Study W Sleep Stage (Routine) Timeframe: 2 Weeks Facility: [facility] - Location: [facility] Ordered By: Bobbi Wilkinson Referrals: Krista Walker MD [Physician] - 10/11/21 11:30 am Lara Jenkins MD [Primary Care Provider] - 10/02/21 11:00 am Discharge Diet: Cardiac Discharge Activity: Increase activity as tolerated Patient Instructions: Isosorbide Mononitrate (By mouth) (Imdur, Imdur ER, Ismo), Bradycardia (DC) Activity Restrictions/Additional Instructions: Upon discharge, please go straight down to [facility] to be fitted with an Event Monitor Discharge Attestations Time Spent in Discharge Care*: other Quality Metrics Clinical Quality Measures [ No reported AMI, CVA or VTE this stay] Coding Level of Care Code Acute Chg FW DC note Diagnoses Atherosclerotic heart disease of [place] coronary artery with other forms of angina pectoris I25.118 CKD (chronic kidney disease) stage 3, GFR 30-59 ml/min N18.31 Chronic kidney disease stage 3 subtype: stage 3a (GFR 45-59) Sleep apnea G47.33 Sleep apnea type: obstructive Hypertension I10 Hypertension type: primary hypertension Dyslipidemia E78.5
== END 2021-09-30 21:55 | disposition short-term general hospital (02) | DRG 287 ==
LOC: ER 09-27 00:58 → ER IP 09-27 04:38 → CSU 09-27 09:43
PROVIDERS: Family Medicine; Internal Medicine Cardiovascular Disease; Admitting Provider Internal Medicine; Emergency Provider Emergency Medicine; PCP Family Medicine; Visit Provider Internal Medicine
PROC: 4A023N7 Measurement of Cardiac Sampling and Pressure, Left Heart, Percutaneous Approach (ICD-10-PCS; principal; 2021-09-29 10:00)
DX: I25.110 Atherosclerotic heart disease of native coronary artery with unstable angina pectoris (principal); I13.0 Hypertensive heart and chronic kidney disease with heart failure and stage 1 through stage 4 chronic kidney disease, or unspecified chronic kidney disease; I50.32 Chronic diastolic (congestive) heart failure; N17.9 Acute kidney failure, unspecified; N18.30 Chronic kidney disease, stage 3 unspecified; E11.22 Type 2 diabetes mellitus with diabetic chronic kidney disease; J44.9 Chronic obstructive pulmonary disease, unspecified; M1A.9XX0 Chronic gout, unspecified, without tophus (tophi); F43.10 Post-traumatic stress disorder, unspecified; R00.1 Bradycardia, unspecified; T44.7X5A Adverse effect of beta-adrenoreceptor antagonists, initial encounter; I44.7 Left bundle-branch block, unspecified; G47.33 Obstructive sleep apnea (adult) (pediatric); D63.1 Anemia in chronic kidney disease; Z79.891 Long term (current) use of opiate analgesic; Z79.82 Long term (current) use of aspirin; Z79.02 Long term (current) use of antithrombotics/antiplatelets
CPT/HCPCS: 36415; 36416; 71045; 71250; 74176; 80048; 80053; 80061; 82550; 82962; 83036; 83735; 83880; 84443; 84484; 85025; 85730; 87493; 87635; 90471; 90732; 93005; 93306; 93454; 93880; 96365; 96372; 96375; 99285; C1769; C1887; C1894; J0360; J1200; J1644; J1650; J1815; J2250; J3010; J3475; J3490; J7030; Q0163; Q9967

== ENCOUNTER → 2021-10-23 11:45 | Outpatient (BNVA) | payer MEDICARE, OTHER, SELFPAY | PROVIDERS: PCP Family Medicine; Visit Provider Family Medicine | DX: R05.9 Cough, unspecified (principal); J44.9 Chronic obstructive pulmonary disease, unspecified; Z98.890 Other specified postprocedural states; Z95.9 Presence of cardiac and vascular implant and graft, unspecified | CPT/HCPCS: 71046 ==

== ENCOUNTER → 2021-11-08 10:59 | Outpatient (BNVA) | payer MEDICARE, SELFPAY | PROVIDERS: PCP Family Medicine; Visit Provider Internal Medicine Cardiovascular Disease | DX: Z09 Encounter for follow-up examination after completed treatment for conditions other than malignant neoplasm (principal); I50.9 Heart failure, unspecified; I11.0 Hypertensive heart disease with heart failure; I25.110 Atherosclerotic heart disease of native coronary artery with unstable angina pectoris | CPT/HCPCS: 99214 ==

== ENCOUNTER → 2023-02-11 14:51 | Outpatient (BNVA) | payer MEDICARE, SELFPAY | PROVIDERS: PCP Family Medicine; Visit Provider Internal Medicine Cardiovascular Disease | DX: I25.110 Atherosclerotic heart disease of native coronary artery with unstable angina pectoris (principal); E78.5 Hyperlipidemia, unspecified; Z95.810 Presence of automatic (implantable) cardiac defibrillator; I13.0 Hypertensive heart and chronic kidney disease with heart failure and stage 1 through stage 4 chronic kidney disease, or unspecified chronic kidney disease; N18.30 Chronic kidney disease, stage 3 unspecified; I50.9 Heart failure, unspecified | CPT/HCPCS: 99214 ==

== ENCOUNTER → 2024-02-26 12:23 | Outpatient (BNVA) | payer MEDICARE, SELFPAY | PROVIDERS: PCP Family Medicine; Visit Provider Internal Medicine Cardiovascular Disease | DX: I13.0 Hypertensive heart and chronic kidney disease with heart failure and stage 1 through stage 4 chronic kidney disease, or unspecified chronic kidney disease (principal); I50.9 Heart failure, unspecified; N18.32 Chronic kidney disease, stage 3b; R00.1 Bradycardia, unspecified; I25.110 Atherosclerotic heart disease of native coronary artery with unstable angina pectoris; E78.5 Hyperlipidemia, unspecified; R73.03 Prediabetes; K21.9 Gastro-esophageal reflux disease without esophagitis; J44.9 Chronic obstructive pulmonary disease, unspecified; Z95.0 Presence of cardiac pacemaker; G47.33 Obstructive sleep apnea (adult) (pediatric); Z95.1 Presence of aortocoronary bypass graft; Z87.891 Personal history of nicotine dependence | CPT/HCPCS: 99214 ==

== ENCOUNTER 2024-04-30 08:29 | Outpatient (CLI) | payer MEDICARE, SELFPAY ==
--- NOTE | 2024-04-30 08:45 | USCV_ITS ---
Virgilio Means Age: 78 Gender: M : 1945 Exam Date: 04/30/2024 08:52 Ordering Phys: Lin Bender MD Technologist: Exam Location: [facility] Indication: hx cad bi pass BP: / HR: 89 Rhythm: Sinus Technical Quality: Adequate MEASUREMENTS (Male / Female) Normal Values 2D ECHO LV Diastolic Diameter PLAX 4.9 cm 4.2 - 5.9 / 3.9 - 5.3 cm IVS Diastolic Thickness 1.3 cm 0.6 - 1.0 / 0.6 - 0.9 cm IVS Systolic Thickness 2.1 cm LVPW Diastolic Thickness 1.3 cm 0.6 - 1.0 / 0.6 - 0.9 cm LVPW Systolic Thickness 1.7 cm LVOT Diameter 2.1 cm LV Ejection Fraction 2D Teich 67.6 % LV Ejection Fraction MOD 4C 62.2 % LV Ejection Fraction MOD 2C 64.2 % LV Ejection Fraction 2C AL 64.5 % LA Diameter 5.2 cm RA Systolic Volume 4C AL 71.0 ml RA Systolic Volume 4C MOD 66.3 ml Aorta at Sinotubular Diameter 3.6 cm M-MODE LA Ao Ratio MM 1.3 AV Cusp Separation MM 2.3 cm DOPPLER AV Peak Velocity 118.0 cm/s LVOT Peak Velocity 96.0 cm/s AV Area Cont Eq vti 2.8 cm squared AV Area Cont Eq pk 2.7 cm squared MV Peak Velocity 101.0 cm/s MV Area PHT 4.5 cm squared Mitral E to A Ratio 1.8 TV Peak Velocity 256.5 cm/s TR Peak Velocity 321.0 cm/s TR Peak Gradient 41.2 mmHg TV Peak E Velocity 89.0 cm/s Right Atrial Pressure 3.0 mmHg Pulmonary Artery Systolic Pressu 44.2 mmHg PV Peak Velocity 111.0 cm/s FINDINGS Left Ventricle Left ventricle is normal in size. LV systolic function is normal with EF of 55 to 60%. No regional wall motion abnormalities are seen. Septal motion consistent with prior cardiac surgery/ conduction abnormality. Mild hypokinesis of apical inferior wall seen. Right Ventricle Normal in size and function. Right Atrium Normal in size Left Atrium Dilated Mitral Valve Structurally normal mitral valve. Mild mitral regurgitation. Aortic Valve Mild aortic valve thickening. Mild aortic regurgitation. Tricuspid Valve Mild tricuspid regurgitation. RVSP is 40 to 45 mmHg. This is consistent with mild pulmonary hypertension. Pulmonic Valve Not well visualized Pericardium Normal Aorta Aortic root appears mildly dilated. IVC Not well visualized CONCLUSIONS LV systolic function is normal with EF of 55-60% Septal motion is consistent with prior cardiac surgery/conduction abnormality. Mild hypokinesis of apical inferior wall seen. Left atrial dilation Mild mitral regurgitation Mild aortic regurgitation Mild tricuspid regurgitation Mild pulmonary hypertension Aortic root appears to be dilated. Compared to prior echocardiogram from 2021, no significant changes are seen. Emory Troy MD (Electronically Signed) Final Date: 02 May 2024 18:05 S
== END 2024-04-30 08:30 | disposition home or self-care (01) ==
LOC: RAD 08:33
PROVIDERS: PCP Family Medicine; Visit Provider Internal Medicine Cardiovascular Disease
DX: I44.2 Atrioventricular block, complete (principal); I08.3 Combined rheumatic disorders of mitral, aortic and tricuspid valves; I27.20 Pulmonary hypertension, unspecified
CPT/HCPCS: 93306

== ENCOUNTER → 2025-01-25 10:17 | Outpatient (BNVA) | payer MEDICARE, SELFPAY | PROVIDERS: PCP Family Medicine; Visit Provider Family Medicine | DX: E11.9 Type 2 diabetes mellitus without complications (principal); N18.32 Chronic kidney disease, stage 3b; D64.9 Anemia, unspecified | CPT/HCPCS: 80048; 82668; 83540; 85007; 85027 ==

== ENCOUNTER → 2025-02-04 09:45 | Outpatient (BNVA) | payer MEDICARE, SELFPAY | PROVIDERS: Family Provider Family Medicine; PCP Family Medicine; Referring Provider Family Medicine; Visit Provider Family Medicine | DX: N18.32 Chronic kidney disease, stage 3b (principal); D63.1 Anemia in chronic kidney disease | CPT/HCPCS: 85025 ==

== ENCOUNTER → 2025-03-11 13:27 | Outpatient (BNVA) | payer OTHER, MEDICARE, SELFPAY | PROVIDERS: Family Provider Family Medicine; PCP Family Medicine; Visit Provider Podiatrist Foot & Ankle Surgery | DX: E11.22 Type 2 diabetes mellitus with diabetic chronic kidney disease (principal); L60.3 Nail dystrophy; N18.4 Chronic kidney disease, stage 4 (severe); G62.9 Polyneuropathy, unspecified; Z89.9 Acquired absence of limb, unspecified; I73.9 Peripheral vascular disease, unspecified; L90.9 Atrophic disorder of skin, unspecified; Z79.84 Long term (current) use of oral hypoglycemic drugs | CPT/HCPCS: 11721; 99204 ==

== ENCOUNTER 2025-03-23 10:00 | Oncology outpatient (recurring) (ONCR) | payer OTHER, SELFPAY ==
[2025-03-23] MEDS: ferric derisomaltose 1,000 MG in sodium chloride 0.9% (100 ml) 100 ML 330 MG IV (10:25)
[2025-03-23 10:31] VITALS: BP 139/86; PULSE 80; TEMP 36.6; O2SAT 92
[2025-03-23 11:01] VITALS: BP 158/55; PULSE 80; TEMP 36.4; O2SAT 96
== END 2025-04-08 23:59 | disposition home or self-care (01) ==
PROVIDERS: PCP Family Medicine; Visit Provider Internal Medicine Medical Oncology
DX: Z53.9 Procedure and treatment not carried out, unspecified reason; D50.9 Iron deficiency anemia, unspecified; Z79.899 Other long term (current) drug therapy; Z87.891 Personal history of nicotine dependence
CPT/HCPCS: 96365; 99204; J1437

== ENCOUNTER 2025-04-20 09:44 | Oncology outpatient (recurring) (ONCR) | payer OTHER, SELFPAY ==
[2025-04-20 10:20] LABS: Hematocrit 30.3 % (37-53); Hemoglobin 9.40 g/dL (11.27-16.99); Mean Corpuscular HGB Conc 31.0 g/dL (30-55); Mean Corpuscular Hemoglobin 25.1 pg (27-33); Mean Corpuscular Volume 80.8 fl (82-101); Nucleated Red Blood Cells % 0 %; Platelet Count 127 10^3/cmm (157-399); Red Blood Count 3.75 10^6/uL (3.85-5.65); White Blood Count 5.81 10^3/uL (3.29-11.43)
[2025-04-20 10:42] LABS: Alanine Aminotransferase 11 U/L (0-41); Albumin Level 4.1 g/dL (3.5-5.2); Alkaline Phosphatase 46 U/L (40-130); Anion Gap 12.1 (5-19); Aspartate Amino Transferase 14 U/L (0-40); Blood Urea Nitrogen 29 mg/dL (8-23); Calcium 8.9 mg/dL (8.5-10.5); Carbon Dioxide 25 mmol/L (22-29); Chloride 98 mmol/L (98-107); Creatinine Clr Calc Pharmacy 38.8371; Ferritin 135 ng/mL (30-400); Globulin 2.8 g/dL (1.3-4.6); Glucose 213 mg/dL (65-115); Iron 51 ug/dL (59-158); Osmolality Calculated 284 mOsm/kg (285-295); Potassium 4.1 mmol/L (3.5-5.1); Sodium 131 mmol/L (136-145); Total Iron Binding Capacity 332 mcg/dl; Total Protein 6.9 g/dL (6.6-8.7); Unsaturated Iron Binding 281 ug/dL (112-347)
== END 2025-05-09 23:59 | disposition home or self-care (01) ==
PROVIDERS: PCP Family Medicine; Visit Provider Internal Medicine Medical Oncology
DX: D50.9 Iron deficiency anemia, unspecified (principal); R00.1 Bradycardia, unspecified; Z79.899 Other long term (current) drug therapy; Z87.891 Personal history of nicotine dependence
CPT/HCPCS: 36415; 80053; 82728; 82746; 83540; 83550; 85025; 99213

== ENCOUNTER → 2025-05-20 13:00 | Outpatient (BNVA) | payer OTHER, SELFPAY | PROVIDERS: PCP Family Medicine; Visit Provider Podiatrist Foot & Ankle Surgery | DX: E11.22 Type 2 diabetes mellitus with diabetic chronic kidney disease (principal); L60.3 Nail dystrophy; L84 Corns and callosities; N18.4 Chronic kidney disease, stage 4 (severe); G62.9 Polyneuropathy, unspecified; Z89.9 Acquired absence of limb, unspecified; I73.9 Peripheral vascular disease, unspecified; L90.9 Atrophic disorder of skin, unspecified; Z79.84 Long term (current) use of oral hypoglycemic drugs | CPT/HCPCS: 11056; 11721 ==

== ENCOUNTER 2025-06-01 12:38 | Oncology outpatient (recurring) (ONCR) | payer OTHER, SELFPAY ==
[2025-06-01 12:56] LABS: Hematocrit 32.8 % (37-53); Hemoglobin 10.80 g/dL (11.27-16.99); Mean Corpuscular HGB Conc 32.9 g/dL (30-55); Mean Corpuscular Hemoglobin 27.4 pg (27-33); Mean Corpuscular Volume 83.2 fl (82-101); Nucleated Red Blood Cells % 0 %; Platelet Count 174 10^3/cmm (157-399); Red Blood Count 3.94 10^6/uL (3.85-5.65); White Blood Count 5.95 10^3/uL (3.29-11.43)
[2025-06-01 13:22] LABS: Alanine Aminotransferase 162 U/L (0-41); Albumin Level 3.8 g/dL (3.5-5.2); Alkaline Phosphatase 575 U/L (40-130); Anion Gap 15.3 (5-19); Aspartate Amino Transferase 121 U/L (0-40); Blood Urea Nitrogen 23 mg/dL (8-23); Calcium 8.9 mg/dL (8.5-10.5); Carbon Dioxide 26 mmol/L (22-29); Chloride 94 mmol/L (98-107); Ferritin 110 ng/mL (30-400); Globulin 3.6 g/dL (1.3-4.6); Glucose 257 mg/dL (65-115); Iron 43 ug/dL (59-158); Osmolality Calculated 284 mOsm/kg (285-295); Potassium 4.3 mmol/L (3.5-5.1); Sodium 131 mmol/L (136-145); Total Iron Binding Capacity 291 mcg/dl; Total Protein 7.4 g/dL (6.6-8.7); Unsaturated Iron Binding 248 ug/dL (112-347)
[2025-06-01 13:45] LABS: Vitamin B12 > 2000 pg/mL (232-1245)
== END 2025-06-08 23:59 | disposition home or self-care (01) ==
PROVIDERS: PCP Family Medicine; Visit Provider Internal Medicine Medical Oncology
DX: D50.9 Iron deficiency anemia, unspecified (principal); R74.01 Elevation of levels of liver transaminase levels; Z87.891 Personal history of nicotine dependence; R00.1 Bradycardia, unspecified
CPT/HCPCS: 36415; 80053; 82607; 82728; 82746; 83540; 83550; 85025; 99214

== ENCOUNTER 2025-06-29 09:50 | Oncology outpatient (recurring) (ONCR) | payer OTHER, SELFPAY ==
[2025-06-29 10:22] LABS: Hematocrit 34.1 % (37-53); Hemoglobin 11.40 g/dL (11.27-16.99); Mean Corpuscular HGB Conc 33.4 g/dL (30-55); Mean Corpuscular Hemoglobin 27.7 pg (27-33); Mean Corpuscular Volume 83.0 fl (82-101); Nucleated Red Blood Cells % 0 %; Platelet Count 179 10^3/cmm (157-399); Red Blood Count 4.11 10^6/uL (3.85-5.65); White Blood Count 6.70 10^3/uL (3.29-11.43)
[2025-06-29 10:40] LABS: Alanine Aminotransferase 74 U/L (0-41); Albumin Level 4.1 g/dL (3.5-5.2); Alkaline Phosphatase 850 U/L (40-130); Anion Gap 18.2 (5-19); Aspartate Amino Transferase 49 U/L (0-40); Blood Urea Nitrogen 23 mg/dL (8-23); Calcium 9.1 mg/dL (8.5-10.5); Carbon Dioxide 24 mmol/L (22-29); Chloride 97 mmol/L (98-107); Ferritin 117 ng/mL (30-400); Globulin 3.6 g/dL (1.3-4.6); Glucose 268 mg/dL (65-115); Iron 57 ug/dL (59-158); Osmolality Calculated 293 mOsm/kg (285-295); Potassium 4.2 mmol/L (3.5-5.1); Sodium 135 mmol/L (136-145); Total Iron Binding Capacity 295 mcg/dl; Total Protein 7.7 g/dL (6.6-8.7); Unsaturated Iron Binding 238 ug/dL (112-347)
[2025-06-29 10:56] LABS: Vitamin B12 1824 pg/mL (232-1245)
== END 2025-07-09 23:59 | disposition home or self-care (01) ==
PROVIDERS: Nurse Practitioner; PCP Family Medicine; Visit Provider Internal Medicine Medical Oncology
DX: D50.9 Iron deficiency anemia, unspecified (principal); R74.01 Elevation of levels of liver transaminase levels
CPT/HCPCS: 36415; 80053; 82607; 82668; 82728; 82746; 83540; 83550; 85025; 99214

== ENCOUNTER → 2025-08-11 12:49 | Outpatient (BNVA) | payer OTHER, SELFPAY | PROVIDERS: PCP Family Medicine; Visit Provider Podiatrist Foot & Ankle Surgery | DX: E11.22 Type 2 diabetes mellitus with diabetic chronic kidney disease (principal); L60.3 Nail dystrophy; L84 Corns and callosities; E11.8 Type 2 diabetes mellitus with unspecified complications; G62.9 Polyneuropathy, unspecified; N18.4 Chronic kidney disease, stage 4 (severe); Z89.9 Acquired absence of limb, unspecified; I73.9 Peripheral vascular disease, unspecified; L90.9 Atrophic disorder of skin, unspecified; Z79.84 Long term (current) use of oral hypoglycemic drugs | CPT/HCPCS: 11056; 11721 ==

== ENCOUNTER 2025-08-31 09:13 | Oncology outpatient (recurring) (ONCR) | payer OTHER, SELFPAY ==
[2025-08-31 09:36] LABS: Hematocrit 28.5 % (37-53); Hemoglobin 9.30 g/dL (11.27-16.99); Mean Corpuscular HGB Conc 32.6 g/dL (30-55); Mean Corpuscular Hemoglobin 28.5 pg (27-33); Mean Corpuscular Volume 87.4 fl (82-101); Nucleated Red Blood Cells % 0 %; Platelet Count 164 10^3/cmm (157-399); Red Blood Count 3.26 10^6/uL (3.85-5.65); White Blood Count 4.58 10^3/uL (3.29-11.43)
[2025-08-31 10:21] LABS: Alanine Aminotransferase 34 U/L (0-41); Albumin Level 3.8 g/dL (3.5-5.2); Alkaline Phosphatase 421 U/L (40-130); Anion Gap 17.7 (5-19); Aspartate Amino Transferase 41 U/L (0-40); Blood Urea Nitrogen 27 mg/dL (8-23); Calcium 9.1 mg/dL (8.5-10.5); Carbon Dioxide 23 mmol/L (22-29); Chloride 96 mmol/L (98-107); Ferritin 79 ng/mL (30-400); Globulin 3.1 g/dL (1.3-4.6); Glucose 210 mg/dL (65-115); Iron 43 ug/dL (59-158); Osmolality Calculated 285 mOsm/kg (285-295); Potassium 4.7 mmol/L (3.5-5.1); Sodium 132 mmol/L (136-145); Total Iron Binding Capacity 291 mcg/dl; Total Protein 6.9 g/dL (6.6-8.7); Unsaturated Iron Binding 248 ug/dL (112-347)
== END 2025-09-08 23:59 | disposition home or self-care (01) ==
LOC: ONCMED 09:17
PROVIDERS: Nurse Practitioner; PCP Family Medicine; Visit Provider Internal Medicine Medical Oncology
DX: D50.9 Iron deficiency anemia, unspecified (principal); Z87.891 Personal history of nicotine dependence; E55.9 Vitamin D deficiency, unspecified; N18.9 Chronic kidney disease, unspecified; I50.9 Heart failure, unspecified; R00.1 Bradycardia, unspecified; E11.22 Type 2 diabetes mellitus with diabetic chronic kidney disease; N18.4 Chronic kidney disease, stage 4 (severe)
CPT/HCPCS: 80053; 82306; 82728; 83540; 83550; 85025; 99215